=== PATIENT | female | born 1945 | race Caucasian/White ===

== ENCOUNTER → 2017-11-08 14:02 | Outpatient (CLI) | payer MEDICARE, OTHER, SELFPAY ==
[2017-11-08 16:45] LABS: Free T3 9.8 pg/mL (2.18-3.98); T4 Free Direct 3.07 ng/dL (0.76-1.46); Thyroid Stim Hormone (TSH) < 0.01 uIU/mL (0.358-3.74)
[2017-11-10 14:07] LABS: Thyroid Peroxidase AB 14 IU/mL (0-34)
[2017-11-10 14:28] LABS: Thyroglobulin Antibody < 1.0 IU/mL (0.0-0.9)
== END ==
PROVIDERS: Family Provider Nurse Practitioner Family; PCP Nurse Practitioner Family; Visit Provider Nurse Practitioner
DX: E05.90 Thyrotoxicosis, unspecified without thyrotoxic crisis or storm (principal)
CPT/HCPCS: 84439; 84443; 84481; 86376; 86800

== ENCOUNTER → 2018-02-01 14:49 | Outpatient (CLI) | payer MEDICARE, OTHER, SELFPAY ==
[2018-02-01 15:44] LABS: ALB/GLOB Ratio 0.9 RATIO (0.9-2.4); AST(SGOT) 30 U/L (15-37); Alanine Aminotransfer ALT/SGPT 29 U/L (13-56); Albumin, Serum 3.6 g/dL (3.2-5.0); Alkaline Phosphatase 246 U/L (45-117); Anion Gap 7 (5-15); BUN 22 mg/dL (7-18); BUN/Creat Ratio 30.8 RATIO (10-20); Chloride 104 mmol/L (98-107); Creatinine, Serum 0.71 mg/dL (0.55-1.02); EST Glomerular Filtration Rate 86 mL/min (>60); Est Glom Filt Rate - Afr Amer 104 mL/min (>60); Free T3 3.2 pg/mL (2.18-3.98); Globulin 4.1 g/dL (2.2-4.2); Glucose 95 mg/dL (74-106); Potassium 4.2 mmol/L (3.5-5.1); Protein, Total 7.7 g/dL (6.4-8.2); Sodium Level 141 mmol/L (136-145); T4 Free Direct 0.92 ng/dL (0.76-1.46); Thyroid Stim Hormone (TSH) < 0.01 uIU/mL (0.358-3.74)
== END ==
PROVIDERS: Family Provider Nurse Practitioner Family; PCP Nurse Practitioner Family; Visit Provider Nurse Practitioner
DX: E05.90 Thyrotoxicosis, unspecified without thyrotoxic crisis or storm (principal); I10 Essential (primary) hypertension; E78.5 Hyperlipidemia, unspecified; R63.4 Abnormal weight loss
CPT/HCPCS: 36415; 80053; 84439; 84443; 84481

== ENCOUNTER → 2018-03-30 16:32 | Outpatient (CLI) | payer MEDICARE, OTHER, SELFPAY ==
[2018-03-30 18:27] LABS: Thyroid Stim Hormone (TSH) 5.47 uIU/mL (0.358-3.74)
== END ==
PROVIDERS: Family Provider Nurse Practitioner Family; PCP Nurse Practitioner Family; Visit Provider Nurse Practitioner
DX: E05.90 Thyrotoxicosis, unspecified without thyrotoxic crisis or storm (principal)
CPT/HCPCS: 36415; 84439; 84443; 84481

== ENCOUNTER → 2018-04-29 08:30 | Outpatient (CLI) | payer MEDICARE, OTHER, SELFPAY ==
[2018-04-29 10:44] LABS: ALB/GLOB Ratio 0.9 RATIO (0.9-2.4); AST(SGOT) 26 U/L (15-37); Alanine Aminotransfer ALT/SGPT 27 U/L (13-56); Albumin, Serum 3.6 g/dL (3.2-5.0); Alkaline Phosphatase 175 U/L (45-117); Anion Gap 10 (5-15); BUN 16 mg/dL (7-18); BUN/Creat Ratio 17.4 RATIO (10-20); Calcium,Total 9.1 mg/dL (8.5-10.1); Chloride 104 mmol/L (98-107); Creatinine, Serum 0.92 mg/dL (0.55-1.02); EST Glomerular Filtration Rate 64 mL/min (>60); Est Glom Filt Rate - Afr Amer 78 mL/min (>60); Free T3 2.2 pg/mL (2.18-3.98); Globulin 4.1 g/dL (2.2-4.2); Glucose 114 mg/dL (74-106); Potassium 3.7 mmol/L (3.5-5.1); Protein, Total 7.7 g/dL (6.4-8.2); Sodium Level 142 mmol/L (136-145); T4 Free Direct 0.49 ng/dL (0.76-1.46)
== END ==
PROVIDERS: Family Provider Nurse Practitioner Family; PCP Nurse Practitioner Family; Visit Provider Nurse Practitioner
DX: E05.90 Thyrotoxicosis, unspecified without thyrotoxic crisis or storm (principal)
CPT/HCPCS: 36415; 80053; 84439; 84443; 84481

== ENCOUNTER → 2018-08-05 10:44 | Outpatient (CLI) | payer MEDICARE, OTHER, SELFPAY ==
[2018-08-05 11:58] LABS: Free T3 2.7 pg/mL (2.18-3.98); T4 Free Direct 0.81 ng/dL (0.76-1.46)
== END ==
PROVIDERS: Family Provider Nurse Practitioner Family; PCP Nurse Practitioner Family; Referring Provider Nurse Practitioner; Visit Provider Nurse Practitioner
DX: E05.90 Thyrotoxicosis, unspecified without thyrotoxic crisis or storm (principal)
CPT/HCPCS: 36415; 84439; 84443; 84481

== ENCOUNTER → 2018-08-22 12:21 | Outpatient (CLI) | payer MEDICARE, OTHER, SELFPAY ==
--- NOTE | 2018-08-22 12:22 | US_ITS ---
STUDY: THYROID ULTRASOUND REASON FOR EXAM: Female, 73 years old. Hyperthyroidism. TECHNIQUE: Ultrasound evaluation of the thyroid was performed with real-time and static fuentes-scale imaging. COMPARISON: None. FINDINGS: RIGHT LOBE: The right lobe of the thyroid gland measures 5.1 x 2.2 x 2.6 cm. There is a heterogeneous echotexture. In the lateral aspect of the mid thyroid there is a 0.5 x 0.5 x 0.6 cm simple cyst. Posteriorly there is a 0.8 x 0.5 x 0.6 cm complex nodule. There is also a 0.7 x 0.3 x 0.6 cm complex nodule in the more anterior mid thyroid. LEFT LOBE: The left lobe of the thyroid gland measures 4.6 x 2.1 x 2.5 cm. There is a heterogeneous echotexture. In the upper pole there is a 0.6 x 0.7 x 0.4 cm complex nodule. In the mid thyroid there is a 0.5 x 0.5 x 0.3 cm cyst. The lower pole there is a 1.9 x 1.3 x 1.1 cm solid hypoechoic nodule. ISTHMUS: The isthmus measures 0.4 cm. The regional lymph nodes are normal. US/Thyroid IMPRESSION: Findings consistent with multinodular goiter. Larger nodule in the left lower lobe most suspicious ranking acid TR 4, moderately suspicious, by ACR TI-RADS criteria. This nodule should be sampled with FNA. Electronically Signed: Jairon Mars DO at 16:01 EST Tel [phone], Service support ,
== END ==
PROVIDERS: Family Provider Nurse Practitioner Family; PCP Nurse Practitioner Family; Referring Provider Nurse Practitioner; Visit Provider Nurse Practitioner
DX: E05.90 Thyrotoxicosis, unspecified without thyrotoxic crisis or storm (principal)
CPT/HCPCS: 76536

== ENCOUNTER → 2018-09-22 10:20 | Outpatient (CLI) | payer MEDICARE, OTHER, SELFPAY ==
[2018-09-15 10:31] VITALS: BMI 35.2
--- NOTE | 2018-09-21 15:00 | ASPS_PTH ---
PATIENT: LISSET RIVERA LOC: [facility] U#:[id number] AGE/SX: 80/F ROOM: RE09/22/[address]: Dr. Lukasz Grace MD : [id number] BED: DIS: SPEC #: [id number] RECD: 09/22/18 10:11 STATUS: SARAH CALEB #: [id number] JOSE: 09/21/18 15:[address]: Lukasz Grace DEPT: CYTOLOGY RECD BY: London Ibarra ENTERED: 09/22/18 11:18 SP TYPE: ASPIRATION OTHR DR: Didier Dunn, [employer] Tissues: Thyroid gland, NOS Procedures: Pap Stain (control) Special Stain Group II Cytology Other HEADER OPERATION: Left thyroid FNA PRE-OP DIAGNOSIS: Left thyroid nodule TISSUE SUBMITTED: Left thyroid slides x6 DIAGNOSIS CYTOLOGY Fine needle aspiration, left thyroid nodule (smears): Adequate for evaluation. Negative, consistent with benign follicular nodule. AM:katya 09/23/18 CYTOLOGY STUDY Slides are reviewed. CYTOLOGY GROSS Received are six smears labeled with the patient's name and designated per the requisition as left thyroid. Submitted for staining. / 09/22/18 TC:5 CPT: 22920
--- OUTSIDE RECORDS SUMMARY | 2018-11-08 05:26 | XMS RPT_ITS ---
:1945 Author Organization OHIP Support Name Relationship Address Phone R Unavailable Unavailable Unavailable IGOR HERRERANETH Unavailable [address] + [place] [address] R Unavailable Unavailable Unavailable MIGUEL NATTY Unavailable [address] + [place] [address] R Unavailable Unavailable Unavailable IGOR HERRERANETH Unavailable [address] + [place] [address] NATTY HERRERA Unavailable Unavailable + NATTY HERRERA Unavailable Unavailable + R Unavailable Unavailable Unavailable IGOR HERRERANETH Unavailable [address] + [place] [address] PLEASE ASK Unavailable Unavailable Unavailable IGOR HERRERANETH Unavailable Unavailable + R Unavailable Unavailable Unavailable IGOR HERRERANETH Unavailable [address] + [place] [address] R Unavailable Unavailable Unavailable IGOR HERRERANETH Unavailable [address] + [place] [address] R Unavailable Unavailable Unavailable MIGUEL NATTY Unavailable [address] + [place] [address] R Unavailable Unavailable Unavailable IGOR HERRERANETH Unavailable [address] + [place] [address] R Unavailable Unavailable Unavailable MIGUEL NATTY Unavailable [address] + [place] [address] R Unavailable Unavailable Unavailable HERRERA, NATTY Unavailable [address] + [place] [address] R Unavailable Unavailable Unavailable HERRERA, NATTY Unavailable [address] + [place] [address] R Unavailable Unavailable Unavailable HERRERA, NATTY Unavailable [address] + [place] [address] Care Team Providers Name Role Phone DIDIER DUNN CNP Attending Unavailable DIDIER DUNN CNP Primary Care Unavailable LAURA HOLT, DR. LOONEY Attending Unavailable DIDIER DUNN CNP Primary Care Unavailable Lukasz Grace Attending Unavailable Didier Dunn AUTISM TEACHER-C Referring Unavailable Lukasz Grace Attending Unavailable Lukasz Grace Referring Unavailable Didier Dunn AUTISM TEACHER-C Primary Care Unavailable Tiffani Vaughan AUTISM TEACHER-C Attending Unavailable DIDIER DUNN Primary Care Unavailable Tiffani Vaughan AUTISM TEACHER-C Attending Unavailable Tiffani Vaughan AUTISM TEACHER-C Referring Unavailable DIDIER DUNN Primary Care Unavailable Tiffani Vaughan AUTISM TEACHER-C Attending Unavailable DIDIER DUNN Referring Unavailable Tiffani Vaughan AUTISM TEACHER-C Attending Unavailable Tiffani Vaughan AUTISM TEACHER-C Referring Unavailable Didier Dunn AUTISM TEACHER-C Primary Care Unavailable Tiffani Vaughan AUTISM TEACHER-C Attending Unavailable Tiffani Vaughan AUTISM TEACHER-C Referring Unavailable Didier Dunn AUTISM TEACHER-C Primary Care Unavailable Tiffani Vaughan AUTISM TEACHER-C Attending Unavailable Tiffani Vaughan AUTISM TEACHER-C Referring Unavailable Didier Dunn AUTISM TEACHER-C Primary Care Unavailable Tiffani Vaughan AUTISM TEACHER-C Attending Unavailable Tiffani Vaughan AUTISM TEACHER-C Referring Unavailable Didier Dunn AUTISM TEACHER-C Primary Care Unavailable Tiffani Vaughan AUTISM TEACHER-C Attending Unavailable Didier Dunn AUTISM TEACHER-C Referring Unavailable Tiffani Vaughan AUTISM TEACHER-C Attending Unavailable Tiffani Vaughan AUTISM TEACHER-C Referring Unavailable Didier Dunn AUTISM TEACHER-C Primary Care Unavailable Lukasz Grace Attending Unavailable Didier Dunn AUTISM TEACHER-C Referring Unavailable PROBLEMS PROBLEMS DATE TYPE CONDITION / CODE ATTENDING STATUS SOURCE 09/21/2018 Unknown 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, 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 / Hospital E04.2(ICD-10) Repository 03/30/2018 Unknown E05.90 - Tiffani Vaughan Active [place] Thyrotoxicosis, AUTISM TEACHER-C Community unspecified Hospital without thyrotoxic Repository crisis or storm / E05.90(ICD-10) PROCEDURES PROCEDURES No Procedure Records FoundRESULTS RESULTS AST(SGOT) Collected: 09/28/2018 Status: F Source: [place] 1:28 PM [facility] TYPE CODE TESTS RESULT OUT OF RANGE REFERENCE UNITS LAB L501.4100 15-37 U/L Normal AST 27 Performed By: #### L501.4100, L501.4405, L501.19161, L501.9520, L506.0400 #### [facility] [address] [place], [place], [id number] ALANINE AMINOTRANSFERAS Collected: 09/28/2018 Status: F Source: [place] (SGPT) 1:28 PM [facility] [place] TYPE CODE TESTS RESULT OUT OF RANGE REFERENCE UNITS LAB L501.4405 13-56 U/L Normal ALT 28 Performed By: #### L501.4100, L501.4405, L501.96304, L501.9520, L506.0400 #### [facility] [address] [place], [place], [id number] FREE T3 Collected: 09/28/2018 Status: F Source: [place] 1:28 PM [facility] TYPE CODE TESTS RESULT OUT OF RANGE REFERENCE UNITS LAB L501.34758 2.18-3.98 pg/mL Normal FREE T3 3.0 Performed By: #### L501.4100, L501.4405, L501.01201, L501.9520, L506.0400 #### [facility] [address] [place], [address] THYROID STIM HORMONE Collected: 09/28/2018 Status: F Source: [place] (TSH) 1:28 PM [facility] TYPE CODE TESTS RESULT OUT OF RANGE REFERENCE UNITS LAB L501.9520 0.358-3.74 uIU/mL Normal TSH 1.13 Performed By: #### L501.4100, L501.4405, L501.49396, L501.9520, L506.0400 #### [facility] [address] [place], [address] T4 FREE DIRECT Collected: 09/28/2018 Status: F Source: [place] 1:28 PM [facility] [place] TYPE CODE TESTS RESULT OUT OF RANGE REFERENCE UNITS LAB L506.0400 0.76-1.46 ng/dL Normal T4 FREE 1.07 DIRECT Performed By: #### L501.4100, L501.4405, L501.27203, L501.9520, L506.0400 #### [facility] [address] [place], [address] SURGERY VISIT REPORT Observed: 09/21/2018 Status: F Source: [place] 3:22 PM [facility] [address] [place] [address] OFFICE VISIT Date of Service: 09/21/18 MR#: [id number] Acct: [id number] Name: LISSET HERRERA Krishan Rep #: [id number] : 1945 Provider: Lukasz Grace MD Age/Sex: 73/F Location: [facility] Status: Signed Intake Intake Visit Reasons: left thyroid FNA Pet Crematory Worker Required: No Is patient in pain?: No Allergies No Known Allergies Allergy (Unverified 09/21/18 14:49) Medications atorvastatin 40 mg tablet 40 mg PO QDAY 10/18/17 [History Confirmed 09/21/18] hydrochlorothiazide 12.5 mg tablet 12.5 mg PO QDAY 10/18/17 [History Confirmed 09/21/18] metformin ER 500 mg tablet,extended release 24 hr 500 mg PO QDAY 10/18/17 [History Confirmed 09/21/18] multivitamin tablet 1 tab PO QDAY 10/18/17 [History Confirmed 09/21/18] pantoprazole 40 mg tablet,delayed release 40 mg PO QDAY 10/18/17 [History Confirmed 09/21/18] sertraline 100 mg tablet 100 mg PO QDAY 10/18/17 [History Confirmed 09/21/18] calcium carbonate 600 mg calcium (1,500 mg) tablet 600 mg PO QDAY tab 10/19/17 [History Confirmed 09/21/18] carboxymethylcellulose sodium 0.25 % eye drops in a dropperette 1 drp OPHTHALMIC BID ea 03/30/18 [History Confirmed 09/21/18] fluorometholone 0.1 % eye drops,suspension 1 drp OPHTHALMIC Q12H ml 03/30/18 [History Confirmed 09/21/18] vit C 250 mg-E 200 unit-zinc 40 mg-copper 1 rd-ubktho-lktivg capsule 1 tab PO BID 08/17/18 [History Confirmed 09/21/18] methimazole 10 mg tablet 10 mg PO QDAY #30 tab 09/06/18 [Rx Confirmed 09/21/18] PFSH Medical History Multiple thyroid nodules (Acute) HTN (hypertension) (Chronic) COPD (chronic obstructive pulmonary disease) (Acute) Diabetes type 2, controlled (Acute) Depression (Acute) Hyperlipidemia (Acute) GERD (gastroesophageal reflux disease) (Acute) Hyperthyroidism (Acute) Surgical History H/O bilateral hip replacements (Acute) removal of spurs (Acute) H/O tubal ligation (Acute) Family History Mother Osteoporosis Myocardial infarction Osteoarthritis Sister Osteoporosis Diabetes Osteoarthritis Colon cancer Brother Leukemia Aunt Breast cancer Social History Smoking Status: Former smoker second hand exposure: No alcohol intake: never substance use type: does not use caffeine: Yes (rarely) frequency: does not exercise seatbelt use: always HPI HPI HPI: LISSET HERRERA, is a 73 F who presents to the office today for left thyroid fine-needle aspiration Office Procedures Fine Needle Aspiration Provider Documentation Details: Ultrasound-guided final aspiration vague left lower pole thyroid nodule Time out and informed consent was obtained. 73-year-old female is taken to procedure room placed on the table. The neck was prepped with Betadine. Ultrasound was performed. There was supposed to be a 19 mm nodule in the lower pole of the left gland. The left gland my eyes was relatively heterogenous. Cleanly identify a distinct lower pole nodule was very challenging. Under ultrasound guidance 1% lidocaine mixed 50-50 with 0.5% Marcaine was used as local anesthetic. A total of 1 cc was used. A 25-gauge needle was advanced into the lower pole of the left lobe. A rapid imww-ytm-vacnh motion was performed. Specimen was obtained and smeared out on slides. The slides were treated immediately with fixative. 3 separate passes were performed. She tolerated the procedure well. She was given activity and wound care instructions. Lukasz Grace M.D., F.A.C.S. Alert Pilar Alert Billing: Yes FNA [id number] Thyroid Assessment AND Plan Problems 1. Multiple thyroid nodules E04.2 Plan Clinical findings and ultrasound findings are now more consistent with a benign finding. The patient will be notified of cytology results as they become available. During the imaging was challenging today. If the cytology is benign then I will recommend follow-up thyroid ultrasound at 6 months. cc:Silvestre Dunn CNP and LIZETTE Raymundo M.D., F.A.C.S. Orders Orders: Coding Level of Care Code Attention Pilar Diagnoses Multiple thyroid nodules E04.2 Additional Codes FNA - Fine Needle Aspiration: 43967 Thyroid (67896) 09/21/18 1522 <Electronically signed by Lukasz Grace MD> Date Lukasz Grace MD Cosigner Signature: Date (if applicable) CC: Tiffani Vaughan AUTISM TEACHER; ROBINAC Didier Dunn ASPIRATION (SLIDES Observed: 09/21/2018 Status: F Source: [place] ONLY) 3:00 PM [facility] Patient: LISSET HERRERA : 1945 (73/F) Acct Num: [id number] Phys: Lesly LOPEZ,Lukasz Unit Num: [id number] Loc: [facility] Specimen: [id number] Received: 09/22/18 - 1011 Spec Type: ASPIRATION TISSUES 1 TISSUES: Thyroid gland, NOS CYTOLOGY GROSS Received are six smears labeled with the patient's name and designated per the requisition as left thyroid. Submitted for staining. / 09/22/18 TC:5 CPT: 45139 CYTOLOGY STUDY Slides are reviewed. DIAGNOSIS CYTOLOGY Fine needle aspiration, left thyroid nodule (smears): Adequate for evaluation. Negative, consistent with benign follicular nodule. AM:katya 09/23/18 HEADER OPERATION: Left thyroid FNA PRE-OP DIAGNOSIS: Left thyroid nodule TISSUE SUBMITTED: Left thyroid slides x6 Signed Win Abel, DO 09/23/18 <signature on file> Performed By: #### PASPS #### [facility] [address] [place] [address]. [place], [address] FINAL SURGICAL Observed: 09/19/2018 Status: F Source: [facility] PATHOLOGY REPORT 10:17 AM [facility] REPOSITORY . Pathology Reports Accession: Collected Date/Time: Received Date/Time: Pathologist: [id number] 09/19/2018 10:17 EST 09/20/2018 09:53 MD DIDIER ROSARIO Final Surgical Pathology Report DIAGNOSIS: A) SIGMOID COLON, BIOPSY: TUBULAR ADENOMA. B) CECUM, BIOPSY: TUBULAR ADENOMA. C) TRANSVERSE COLON, BIOPSY: TUBULAR ADENOMA. COMMENT: [facility] Aliya # [id number] CLINICAL INFORMATION: Procedure: COLONOSCOPY WITH HOT SNARE AND BIOPSY POLYPECTOMIES Preoperative diagnosis: HISTORY OF POLYPS Postoperative diagnosis: SAME SPECIMEN: A POLYP, COLORECT- SIGMOID POLYP B POLYP, COLORECT- CECAL POLYP C POLYP, COLORECT- TRANSVERSE COLON POLYP GROSS DESCRIPTION: A. Received in formalin labeled sigmoid polyp are 2 martines glistening soft tissues averaging 0.5 cm. TS -1 B. Received in formalin labeled cecal polyp are 2 martines-brown listening soft tissues averaging 0.4 cm. TS -1 C. Received in formalin labeled transverse colon polyps are multiple martines glistening soft tissues ranging from 0.3-0.4 cm. TS -1 Dictated by Ibeth [facility] MICROSCOPIC DESCRIPTION: A,B&C) Slides reviewed. Electronically Signed by Pathology Report verified by [facility] Electronically signed by DIDIER ESTRADA MD Sign out Date: 09/21/2018 08:58 Performing Lab: [facility], [address] [place] [address] Performed By: #### SPFR #### [place] [address] SURGERY VISIT REPORT Observed: 09/15/2018 Status: F Source: [place] 10:[address] [facility] [address] [place] [address] OFFICE VISIT Date of Service: 09/15/18 MR#: [id number] Acct: [id number] Name: LISSET HERRERA Rep #: [id number] : 1945 Provider: Lukasz Grace MD Age/Sex: 73/F Location: [facility] Status: Signed Intake Vital Signs09/15/18 Height 5 ft 1.5 in 09/15/18 Weight: 185 lb 09/15/18 Body Mass Index (BMI) 34.4 Intake Visit Reasons: Thyroid Consult [facility] 08/22 Allergies No Known Allergies Allergy (Unverified 09/15/18 10:04) Medications atorvastatin 40 mg tablet 40 mg PO QDAY 10/18/17 [History Confirmed 09/15/18] hydrochlorothiazide 12.5 mg tablet 12.5 mg PO QDAY 10/18/17 [History Confirmed 09/15/18] metformin ER 500 mg tablet,extended release 24 hr 500 mg PO QDAY 10/18/17 [History Confirmed 09/15/18] multivitamin tablet 1 tab PO QDAY 10/18/17 [History Confirmed 09/15/18] pantoprazole 40 mg tablet,delayed release 40 mg PO QDAY 10/18/17 [History Confirmed 09/15/18] sertraline 100 mg tablet 100 mg PO QDAY 10/18/17 [History Confirmed 09/15/18] calcium carbonate 600 mg calcium (1,500 mg) tablet 600 mg PO QDAY tab 10/19/17 [History Confirmed 09/15/18] carboxymethylcellulose sodium 0.25 % eye drops in a dropperette 1 drp OPHTHALMIC BID ea 03/30/18 [History Confirmed 09/15/18] fluorometholone 0.1 % eye drops,suspension 1 drp OPHTHALMIC Q12H ml 03/30/18 [History Confirmed 09/15/18] vit C 250 mg-E 200 unit-zinc 40 mg-copper 1 cr-jbrdtz-iwqcec capsule 1 tab PO BID 08/17/18 [History Confirmed 09/15/18] methimazole 10 mg tablet 10 mg PO QDAY #30 tab 09/06/18 [Rx Confirmed 09/15/18] PFSH Medical History Multiple thyroid nodules (Acute) HTN (hypertension) (Chronic) COPD (chronic obstructive pulmonary disease) (Acute) Diabetes type 2, controlled (Acute) Depression (Acute) Hyperlipidemia (Acute) GERD (gastroesophageal reflux disease) (Acute) Hyperthyroidism (Acute) Surgical History H/O bilateral hip replacements (Acute) removal of spurs (Acute) H/O tubal ligation (Acute) Family History Mother Osteoporosis Myocardial infarction Osteoarthritis Sister Osteoporosis Diabetes Osteoarthritis Colon cancer Brother Leukemia Aunt Breast cancer Social History Smoking Status: Former smoker second hand exposure: No alcohol intake: never substance use type: does not use caffeine: Yes (rarely) frequency: does not exercise seatbelt use: always HPI HPI HPI: LISSET HERRERA, is a 73 F who presents to the office today for surgical consultation regarding multinodular thyroid. The patient is referred by IDANIA vaughan CNP and a written compromise surgical consult recommendations will be returned to her.. 73-year-old female. Her primary care provider is Silvestre Dunn CNP. Patient presented to him with she claims a 40-50 pound weight loss. Thyroid disorder was identified. On August 05, 2018 Free T3 was 2.7 with a TSH of 12.9 and a T4 direct of 0.81. Recent laboratory of August 18, 2018 shows a hemoglobin A1c of 5.6 with a white blood cell count of 7.4 and a hemoglobin of 14.1 and hematocrit 43.2 and a platelet count 272,000. BUN is 14 and creatinine 0.8. Liver function tests were normal. At the [facility] on August 22, 2018 thyroid ultrasound was obtained. The right lobe measures 5.1 cm. There is a 6 mm cyst and a 8 mm complex nodule and a 7 mm complex nodule. On the left the gland measures 4.6 cm and there is a 7 mm nodule and a 5 mm nodule in the lower pole a solid 19 mm nodule. The patient has no specific focal anterior neck symptoms. She has a strong family history of multinodular goiter and hypothyroidism and multiple sisters requiring medication. She has not had any head neck radiation treatment. She states that since having been placed on methimazole she has regained all 40-50 pounds of weight loss ROS General General: Yes weight change and fatigue; no appetite, colon cancer, breast cancer or weakness HEENT HEENT: No difficulty swallowing, eye injury, eye surgery, swollen glands or hoarseness Endo Endocrine: Yes thyroid disease and diabetes mellitus; no thyroid cancer, Hair loss, heat intolerance or cold intolerance Skin Skin: No rash or changing moles Musc Musculoskeletal: Yes arthritis; no back problems, rheumatoid arthritis, gout or joint pain Cardio Cardiovascular: No pacemaker, heart disease, atrial fibrillation, high blood pressure, heart attack, heart stent, palpitations, shortness of breat with exertion, chest pain or murmur Psych Psychiatric: Yes depression; no anxiety or hearing voices Resp Respiratory: Yes shortness of breath, Yes cough, No sleep apnea, No COPD, No asthma, No emphysema, No wheezing Gastro Gastrointestinal: Yes acid reflux, No abdominal pain, No nausea or vomiting, No diarrhea, No constipation, No blood in stool, No hemorrhoids, No ulcers, No gallbladder problem, No black,tarry stools Osbaldo Hematologic: No blood thinners, No blood disorders, No bleeding, No anemia, No blood clots Neuro Neurologic: No weakness Exam Const General: cooperative, comfortable, no acute distress Nutritional Appearance: obese Neck Thyroid: thyroid normal Carotids: normal carotid upstroke, no bruits Other: Chvostek negative Cardio Heart Sounds: no murmurs Assessment AND Plan Problems 1. Multiple thyroid nodules E04.2 Plan I have reviewed the patient's imaging. I believe that she probably has condition similar to sisters and family members consistent with multinodular goiter. I have offered her a ultrasound-guided final aspiration particularly of the dominant nodule lower pole left thyroid. She has had an opportunity to ask and have questions answered. At that same setting I will take a brief inspection of the right thyroid as well. I described the technique, benefits, risks, alternatives. She has had an opportunity to ask and have questions answered. She is not on any anticoagulants. We will schedule and expedite her care. I very much appreciate the kind opportunity of assisting with her surgical care CC: IDANIA vaughan CNP and LIZETTE Horta M.D., F.A.C.S. Coding Level of Care Code Exp prob focused,strt fwd Diagnoses Multiple thyroid nodules E04.2 09/15/18 1031 <Electronically signed by Lukasz Grace MD> Date Lukasz Grace MD Cosigner Signature: Date (if applicable) CC: Tiffani Vaughan AUTISM TEACHER; AUTISM TEACHER-C Didier Dunn MA MAMMOGRAM SCREENING Observed: 08/31/2018 Status: F Source: [facility] BILATERAL W/PETE 11:00 AM FOUNDATION REPOSITORY ORIGINAL FROM: [place] [address] PROCEDURE FOR: LISSET HERRERA [address] [place] [id number] Home: PID#: [id number] Exam#: [id number] : 1945 Age: 73 TO: DIDIER DUNN APRN [place] [address] #[id number] BILATERAL DIGITAL SCREENING MAMMOGRAM 3D/2D WITH CAD WITH MEDIOLATERAL OBLIQUE CRANIOCAUDAL: 08/31/2018 Comparison is made to exams dated: 07/05/2017 mammogram and 07/02/2015 mammogram - [facility]. There are scattered fibroglandular elements in both breasts. Current study was also evaluated with a Computer Aided Detection (CAD) system. No significant masses, calcifications, or other findings are seen in either breast. There has been no significant interval change. IMPRESSION: NEGATIVE There is no mammographic evidence of malignancy. A 1 year screening mammogram is recommended.(09/01/2019) MALLY VALLE MD ab/penrad:08/31/2018 16:15:20 Sports Book Board Attendant(s): ALEC ABEBE RT(R), [facility] letter sent: Normal BI-RADS 1&2 Mammogram BI-RADS: 1 Negative THYROID Observed: 08/22/2018 Status: F Source: [place] 12:22 PM [facility] Imaging Services [address] [place], [place] [address] [address] Thyroid MR#: [id number] Acct: [id number] Name: LISSET HERRERA Rep #: [id number] : 1945 F 73 From: Jairon Mars DO PCP: MARK Orellana Status: REG CLI Study: Thyroid Date of Exam: 08/22/18 Exam# [id number] Ordering Dr: Tiffani Vaughan STUDY: THYROID ULTRASOUND REASON FOR EXAM: Female, 73 years old. Hyperthyroidism. TECHNIQUE: Ultrasound evaluation of the thyroid was performed with real-time and static fuentes-scale imaging. COMPARISON: None. FINDINGS: RIGHT LOBE: The right lobe of the thyroid gland measures 5.1 x 2.2 x 2.6 cm. There is a heterogeneous echotexture. In the lateral aspect of the mid thyroid there is a 0.5 x 0.5 x 0.6 cm simple cyst. Posteriorly there is a 0.8 x 0.5 x 0.6 cm complex nodule. There is also a 0.7 x 0.3 x 0.6 cm complex nodule in the more anterior mid thyroid. LEFT LOBE: The left lobe of the thyroid gland measures 4.6 x 2.1 x 2.5 cm. There is a heterogeneous echotexture. In the upper pole there is a 0.6 x 0.7 x 0.4 cm complex nodule. In the mid thyroid there is a 0.5 x 0.5 x 0.3 cm cyst. The lower pole there is a 1.9 x 1.3 x 1.1 cm solid hypoechoic nodule. ISTHMUS: The isthmus measures 0.4 cm. The regional lymph nodes are normal. US/Thyroid IMPRESSION: Findings consistent with multinodular goiter. Larger nodule in the left lower lobe most suspicious ranking acid TR 4, moderately suspicious, by ACR TI-RADS criteria. This nodule should be sampled with FNA. Electronically Signed: Jairon Mars DO at 16:01 EST Tel [phone], Service support , CC: Tiffani Vaughan NP; MARK Dunn Voltage Regulator Assembler: Signed OFFICE VISIT REPORT Observed: 08/17/2018 Status: F Source: [place] 7:[address] [place] [address] OFFICE VISIT Date of Service: 08/17/18 MR#: [id number] Acct: [id number] Patient: LISSET HERRERA Rep #: [id number] : 1945 Provider: Tiffani Vaughan NP Age/Sex: 73/F [place] [facility] [place]: Signed Intake Vital Signs08/17/18 Height 5 ft 1 in 08/17/18 Weight: 186 lb 2 oz 08/17/18 Body Mass Index (BMI) 35.2 08/17/18 Blood Pressure 116/74 08/17/18 Blood Pressure Location Lt popliteal 08/17/18 Blood Pressure Position Sitting Intake Visit Reasons: Thyroid dysfunction Pet Crematory Worker Required: No Accompanied by: Self Allergies No Known Allergies Allergy (Unverified 08/17/18 08:39) Medications atorvastatin 40 mg tablet 40 mg PO QDAY 10/18/17 [History Confirmed 08/17/18] hydrochlorothiazide 12.5 mg tablet 12.5 mg PO QDAY 10/18/17 [History Confirmed 08/17/18] metformin ER 500 mg tablet,extended release 24 hr 500 mg PO QDAY 10/18/17 [History Confirmed 08/17/18] multivitamin tablet 1 tab PO QDAY 10/18/17 [History Confirmed 08/17/18] pantoprazole 40 mg tablet,delayed release 40 mg PO QDAY 10/18/17 [History Confirmed 08/17/18] sertraline 100 mg tablet 100 mg PO QDAY 10/18/17 [History Confirmed 08/17/18] calcium carbonate 600 mg calcium (1,500 mg) tablet 600 mg PO QDAY tab 10/19/17 [History Confirmed 08/17/18] carboxymethylcellulose sodium 0.25 % eye drops in a dropperette 1 drp OPHTHALMIC BID ea 03/30/18 [History Confirmed 08/17/18] fluorometholone 0.1 % eye drops,suspension 1 drp OPHTHALMIC Q12H ml 03/30/18 [History Confirmed 08/17/18] methimazole 10 mg tablet 10 mg PO QDAY #30 tab 08/10/18 [Rx Confirmed 08/17/18] vit C 250 mg-E 200 unit-zinc 40 mg-copper 1 fz-jhheuq-oqmkam capsule 1 tab PO BID 08/17/18 [History Confirmed 08/17/18] PFSH Medical History COPD (chronic obstructive pulmonary disease) (Acute) Depression (Acute) Diabetes type 2, controlled (Acute) GERD (gastroesophageal reflux disease) (Acute) Hyperlipidemia (Acute) Hyperthyroidism (Acute) removal of spurs (Acute) HTN (hypertension) (Chronic) Surgical History H/O bilateral hip replacements (Acute) H/O tubal ligation (Acute) Family History Mother Osteoporosis Myocardial infarction Osteoarthritis Sister Osteoporosis Diabetes Osteoarthritis Colon cancer Brother Leukemia Aunt Breast cancer Social History Smoking Status: Former smoker second hand exposure: No alcohol intake: never substance use type: does not use HPI HPI Details: Details: History of present illness Lisset Herrera is a 72 year old female, pt of Didier Dunn, who presents for follow up of hyperthyroidism. Today she reports overall she feels good with some issues of constipation weight gain She specifically denies palpitations, rapid heart rate, anxiety, nervousness, fatigue, weakness, exopthalmos, sleep issues, change in appetite. Currently on tapazole 10mg daily. She has not kept appointments as directed. . She has been managed by labs and telephone. Today she mentions she has had some difficulty swallowing and this is new for her. Exam Const General: comfortable, no acute distress, not diaphoretic, not anxious Nutritional Appearance: average body habitus Orientation: oriented x3 HENMT Head: normal to inspection, atraumatic Ears: hearing grossly normal bilaterally Nose: no nasal discharge Mouth: oral mucosae normal, moist mucous membranes Throat: other Other: Thyroid ultrasound notes normal size thyroid with subcentimeter nodules bilateral. Eyes General: appearance normal, both eyes and all related structures Eyelids: eyelids normal Conjunctivae: conjunctivae normal Pupils: other (No exophthalmos) Neck Neck: normal visual inspection Neck mass: No Thyroid: multiple nodules Chest Chest palpation AND inspection: deferred Resp Effort AND Inspection: able to speak in complete sentences, normal respiratory effort, symmetric chest movement Auscultation: Bilateral: Clear to Auscultation Cardio Rate: regular rate Rhythm: regular rhythm Heart Sounds: S1 normal, S2 normal GI Inspection: normal to inspection Auscultation: normal bowel sounds Palpation: soft, no guarding General: deferred Skin General: no rashes or lesions noted, turgor normal Wounds: no wounds Neuro General: gait normal, moves all extremities Cognition: normal cognition Speech: speech normal Extrem General: no edema, normal to inspection, full ROM Psych Appearance: well kempt Mood: congruent mood Affect: normal affect Speech and Movement: speech and movement normal Attitude: cooperative Thought Process: normal Thought Content: normal Judgment: judgment good ROS Const Constitutional: Positive for night sweats and change in appetite; no anorexia, body ache, chills, fatigue, fever(s), frequent falls, decreased energy, malaise, weakness, weight change, sleep problems, abnormal sleep pattern, other, headache(s), snoring or excessive sweating Eyes Eyes: No blurry vision, change in vision, double vision, discharge, dry eyes, bulging eyes, floaters, visual disturbances, eye pain, light sensitivity, spots in vision, tunnel vision or other ENT ENT: No abnormal hearing, ear pain, ear discharge, ear pressure, hearing loss, tinnitus, dizziness/vertigo, balance problems, nosebleed/epistaxis, nasal congestion, nasal obstruction, nose pain, sinus pressure, sinus pain, nasal discharge, post nasal drip, headache(s), facial pain, dental pain, dry mouth, bad breath, hoarseness, lip swelling, mouth lesions, mouth pain, sore throat, tongue swelling, throat swelling, other, difficulty swallowing or neck pain Resp Respiratory: No cough, change in phlegm color, chest congestion, excessive phlegm production, hemoptysis, pain on inspiration, shortness of breath, pain with cough, snoring, stridor, wheezing or other Cardio Cardiology: No chest pain at rest, chest pain with exertion, leg pain with exertion, excessive sweating, shortness of breath, dyspnea on exertion, generalized swelling, irregular heart rhythm, lightheadedness, orthopnea, radiating jaw, neck or arm pain, fast heart rate, slow heart rate, palpitations or other Gastro GI: No abdominal pain, belching, bloating, change in bowel habits, change in stool character, coffee ground emesis, constipation, cramping, diarrhea, heartburn, difficulty swallowing, feeling full early, excessive flatus, incontinent of stools, Vomiting blood/hematemesis, blood in stool, loose stools, Black,tarry stools, nausea/dyspepsia, pain with swallowing, vomiting or other Genitourinary-Female: No difficulty urinating, burning urination, painful urination, urinary incontinence, urinary frequency, urinary urgency, urinary hesitancy, urinary retention, blood in urine, Frequent nighttime urination/ nocturia, post void dribbling, suprapubic fullness, side pain, sexual problems, genital lesions, genital itching, hot flashes, abnormal periods, abnormal vaginal bleeding, absent period, painful periods, light periods, heavy periods, difficulty getting , painful intercourse, pelvic pain, vaginal dryness, vaginal odor, Vaginal Itching or other Musc Musculoskeletal: No abnormal walking, joint pain, back pain, deformity, joint swelling, limited range of motion, loss of height, muscle cramps, muscle weakness, decreased muscle mass, body aches, neck pain, numbness, radiating pain into limb, stiffness, tingling or other Skin Skin: No acne, hair loss, change in hair, nail changes, boil, change in skin color, dry skin, redness, excessive hair growth, yellowing of the skin, lesions, itching, rash, skin pain, skin ulcer, sores, skin swelling, wounds or other Breast Breast: No other Neuro Neurology: No frequent falls, weakness, visual disturbances, abnormal hearing, headache(s), abnormal walking, numbness or tingling Psych Psychiatric: No abnormal sleep pattern, Positive for change in appetite Endo Endocrine: No fatigue, other or excessive sweating Aller/Imm Allergy/Immunologic: No lip swelling, tongue swelling, throat swelling, wheezing or itchy eyes Exam Musc Musculoskeletal: No muscle weakness Assessment AND Plan 1. Hyperthyroidism E05.90 Plan Patient did not reduce her tapazole to 10mg as directed . Was noted when pharmacist called for refill. TSH last noted 12.90 and she has since been instructed reduce tapazole to 10mg. She is complaining of difficulty swallowing as a new symptom so US thyroid to be done. Instructed again today labs must be completed every 6 weeks and visits must be completed every 3 months. This has been an issue. Patient Instructions Tapazole 10mg daily Lab 6 weeks RTC 12 weeks ER if severe sore throat or fever. Orders Orders: Plan Detail Other Orders Orders: Other Medications New: vit C,K-Rh-ozqlk-lutein-zeaxan [id number] xf-apmf-ze-mg (PreserVision ARED1 tab PO BID S-2) Additional Comments Spent approximately 30 minutes with patient with over 50% of time spent in discussion and counseling regarding medication adjustment, symptoms and treatment of hyperthyroidism. Coding Level of Care Code Off vis,est,level 4 Diagnoses Hyperthyroidism E05.90 08/17/181931 <Electronically signed by Tiffani FLORES> Date Tiffani FLORES Cosigner Signature: Date (if applicable) CC: FREE T3 Collected: 08/05/2018 Status: F Source: [place] 10:48 AM [facility] [place] TYPE CODE TESTS RESULT OUT OF RANGE REFERENCE UNITS LAB L501.95452 2.18-3.98 pg/mL Normal FREE T3 2.7 Performed By: #### L501.19729, L501.9520, L506.0400 #### [facility] [address] [place], [address] THYROID STIM HORMONE Collected: 08/05/2018 Status: F Source: [place] (TSH) 10:48 AM [facility] [place] TYPE CODE TESTS RESULT OUT OF RANGE REFERENCE UNITS LAB L501.9520 0.358-3.74 uIU/mL High TSH 12.90 Performed By: #### L501.19900, L501.9520, L506.0400 #### [facility] [address] [place], [address] T4 FREE DIRECT Collected: 08/05/2018 Status: F Source: [place] 10:48 AM [facility] [place] [place] TYPE CODE TESTS RESULT OUT OF RANGE REFERENCE UNITS LAB L506.0400 0.76-1.46 ng/dL Normal T4 FREE 0.81 DIRECT Performed By: #### L501.37761, L501.9520, L506.0400 #### [facility] [address], [address] COMPREHENSIVE METABOLIC Collected: 04/29/2018 Status: F Source: [place] PROFIL 8:35 AM [facility] [place] TYPE CODE TESTS RESULT OUT OF RANGE REFERENCE UNITS LAB L501.0100 74-106 mg/dL High GLU 114 Result Comment: Fasting Glucose result from 100 to 125 mg/dL suggests IMPAIRED HOMEOSTASIS per A.D.A. criteria. Please note revised GLUCOSE reference range effective 2017. LAB L501.1000 7-18 mg/dL Normal BUN 16 LAB L501.1100 0.55-1.02 mg/dL Normal CREAT,SERUM 0.92 Result Comment: The validity of the calculated GFR AND GFRAA in patients over 70 years has not been determined. Clinical correlation is essential. LAB L501.1110 >60 mL/min Normal EST GFR 64 Result Comment: Non- GFR Calc LAB L501.1115 >60 mL/min Normal EST GFR - AA 78 Result Comment: GFR Calc LAB L501.1300 10-20 RATIO Normal BUN/CRE 17.4 LAB L501.1500 6.4-8.2 g/dL T Normal PROT 7.7 LAB L501.1800 3.2-5.0 g/dL Normal ALB 3.6 LAB L501.1950 2.2-4.2 g/dL Normal GLOB 4.1 LAB L501.2000 0.9-2.4 RATIO Normal A/G 0.9 LAB L501.2200 8.5-10.1 mg/dL CA Normal 9.1 LAB L501.4100 15-37 U/L Normal AST 26 LAB L501.4305 45-117 U/L High ALK P 175 LAB L501.4405 13-56 U/L Normal ALT 27 LAB L501.4600 0.20-1.00 mg/dL T Normal BILI 0.20 LAB L501.5300 136-145 mmol/L NA Normal 142 LAB L501.5600 3.5-5.1 mmol/L K Normal 3.7 LAB L501.5900 98-107 mmol/L CL Normal 104 LAB L501.6100 21.0-32.0 mmol/L Normal CO2 28.0 LAB L501.6200 5-15 Normal GAP 10 Performed By: #### L500.4050, L501.57103, L501.9520, L506.0400 #### [facility] [address] [place], [place], [id number] FREE T3 Collected: 04/29/2018 Status: F Source: [place] 8:35 AM [facility] [place] TYPE CODE TESTS RESULT OUT OF RANGE REFERENCE UNITS LAB L501.34341 2.18-3.98 pg/mL Normal FREE T3 2.2 Performed By: #### L500.4050, L501.69308, L501.9520, L506.0400 #### [facility] [address] [place], [place], [address] THYROID STIM HORMONE Collected: 04/29/2018 Status: F Source: [place] (TSH) [facility] TYPE CODE TESTS RESULT OUT OF RANGE REFERENCE UNITS LAB L501.9520 0.358-3.74 uIU/mL High TSH 20.50 Performed By: #### L500.4050, L501.83315, L501.9520, L506.0400 #### [facility] [address] [place], [address] T4 FREE DIRECT Collected: 04/29/2018 Status: F Source: [place] 8:35 AM [facility] [place] TYPE CODE TESTS RESULT OUT OF REFERENCE UNITS RANGE LAB L506.0400 0.76-1.46 ng/dL Low T4 FREE 0.49 DIRECT Performed By: #### L500.4050, L501.26491, L501.9520, L506.0400 #### [facility] [address] [place], [address] OFFICE VISIT REPORT Observed: 04/02/2018 Status: F Source: [place] 6:10 PM [facility] 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 Accompanied by: Self Is patient in pain?: No Allergies No Known Allergies Allergy (Unverified 03/30/18 15:10) Medications atorvastatin 40 mg tablet 40 mg PO QDAY 10/18/17 [History Confirmed 03/30/18] hydrochlorothiazide 12.5 mg tablet 12.5 mg PO QDAY 10/18/17 [History Confirmed 03/30/18] metformin ER 500 mg tablet,extended release 24 hr 500 mg PO QDAY 10/18/17 [History Confirmed 03/30/18] multivitamin tablet 1 tab PO QDAY 10/18/17 [History Confirmed 03/30/18] pantoprazole 40 mg tablet,delayed release 40 mg PO QDAY 10/18/17 [History Confirmed 03/30/18] sertraline 100 mg tablet 100 mg PO QDAY 10/18/17 [History Confirmed 03/30/18] calcium carbonate 600 mg calcium (1,500 mg) tablet 600 mg PO QDAY tab 10/19/17 [History Confirmed 03/30/18] methimazole 10 mg tablet 30 mg PO QDAY #90 tab MDD 3 pills daily 02/14/18 [Rx Confirmed 03/30/18] carboxymethylcellulose sodium 0.25 % eye drops in a dropperette 1 drp OPHTHALMIC BID ea 03/30/18 [History Confirmed 03/30/18] cholecalciferol (vitamin D3) 50,000 unit capsule 50,000 unit PO QWEEK 03/30/18 [History Confirmed 03/30/18] fluorometholone 0.1 % eye drops,suspension 1 drp OPHTHALMIC Q12H ml 03/30/18 [History Confirmed 03/30/18] Is last menstrual period known: No Post menopausal: Yes Patient : No PFSH Medical History COPD (chronic obstructive pulmonary disease) (Acute) Depression (Acute) Diabetes type 2, controlled (Acute) GERD (gastroesophageal reflux disease) (Acute) Hyperlipidemia (Acute) Hyperthyroidism (Acute) removal of spurs (Acute) HTN (hypertension) (Chronic) Surgical History H/O bilateral hip replacements (Acute) H/O tubal ligation (Acute) Family History Mother Osteoporosis Myocardial infarction Osteoarthritis Sister Osteoporosis Diabetes Osteoarthritis Colon cancer Brother Leukemia Aunt Breast cancer Social History Smoking Status: Former smoker second hand exposure: No alcohol intake: never substance use type: does not use HPI HPI Details: History of present illness Lisset Herrera is a 72 year old female, pt of Didier Dunn, who presents forfollow up of hyperthyroidism. Today she reports overall she feels good with some issues of constipation weight gain She specifically denies palpitations, rapid heart rate, anxiety, nervousness, fatigue, weakness, exopthalmos, sleep issues, change in appetite. Continues on tapazole 30mg daily. Reports taking as directed without missing any doses. She has not kept any appointments since her initial visit as her insurance is out of network. Vivien has been managed completely by labs and telephone. Weight and fatigue symptoms: Denies snoring Cardiopulmonary symptoms: Denies chest pain at rest, dyspnea on exertion, lightheadedness or myalgias GI symptoms: Reports constipation; denies diarrhea, nausea/dyspepsia or vomiting Other symptoms: Reports change in vision (bilat cataract surgery 2017); denies blurry vision Exam Const General: comfortable, no acute distress, not diaphoretic, not anxious Nutritional Appearance: average body habitus Orientation: oriented x3 HENMT Head: normal to inspection, atraumatic Ears: hearing grossly normal bilaterally Nose: no nasal discharge Mouth: oral mucosae normal, moist mucous membranes Throat: other Other: Thyroid ultrasound notes normal size thyroid with subcentimeter nodules bilateral. Eyes General: appearance normal, both eyes and all related structures Eyelids: eyelids normal Conjunctivae: conjunctivae normal Pupils: other (No exophthalmos) Neck Neck: normal visual inspection Neck mass: No Thyroid: multiple nodules Chest Chest palpation AND inspection: deferred Resp Effort AND Inspection: able to speak in complete sentences, normal respiratory effort, symmetric chest movement Auscultation: Bilateral: Clear to Auscultation Cardio Rate: regular rate Rhythm: regular rhythm Heart Sounds: S1 normal, S2 normal GI Inspection: normal to inspection Auscultation: normal bowel sounds Palpation: soft, no guarding General: deferred Skin General: no rashes or lesions noted, turgor normal Wounds: no wounds Neuro General: gait normal, moves all extremities Cognition: normal cognition Speech: speech normal Extrem General: no edema, normal to inspection, full ROM Psych Appearance: well kempt Mood: congruent mood Affect: normal affect Speech and Movement: speech and movement normal Attitude: cooperative Thought Process: normal Thought Content: normal Judgment: judgment good ROS Const Constitutional: Positive for night sweats, sleep problems, abnormal sleep pattern and change in appetite; no anorexia, body ache, chills, fatigue, fever(s), frequent falls, decreased energy, malaise, weakness, weight change, other, headache(s), snoring or excessive sweating Eyes Eyes: No blurry vision, change in vision, double vision, discharge, dry eyes, bulging eyes, floaters, visual disturbances, eye pain, light sensitivity, spots in vision, tunnel vision or other ENT ENT: No abnormal hearing, ear pain, ear discharge, ear pressure, hearing loss, tinnitus, dizziness/vertigo, balance problems, nosebleed/epistaxis, nasal congestion, nasal obstruction, nose pain, sinus pressure, sinus pain, nasal discharge, post nasal drip, headache(s), facial pain, dental pain, dry mouth, bad breath, hoarseness, lip swelling, mouth lesions, mouth pain, sore throat, tongue swelling, throat swelling, other, difficulty swallowing or neck pain Resp Respiratory: No cough, change in phlegm color, chest congestion, excessive phlegm production, hemoptysis, pain on inspiration, shortness of breath, pain with cough, snoring, stridor, wheezing or other Cardio Cardiology: No chest pain at rest, chest pain with exertion, leg pain with exertion, excessive sweating, shortness of breath, dyspnea on exertion, generalized swelling, irregular heart rhythm, lightheadedness, orthopnea, radiating jaw, neck or arm pain, fast heart rate, slow heart rate, palpitations or other Gastro GI: No abdominal pain, belching, bloating, change in bowel habits, change in stool character, coffee ground emesis, constipation, cramping, diarrhea, heartburn, difficulty swallowing, feeling full early, excessive flatus, incontinent of stools, Vomiting blood/hematemesis, blood in stool, loose stools, Black,tarry stools, nausea/dyspepsia, pain with swallowing, vomiting or other Genitourinary-Female: No difficulty urinating, burning urination, painful urination, urinary incontinence, urinary frequency, urinary urgency, urinary hesitancy, urinary retention, blood in urine, Frequent nighttime urination/ nocturia, post void dribbling, suprapubic fullness, side pain, sexual problems, genital lesions, genital itching, hot flashes, abnormal periods, abnormal vaginal bleeding, absent period, painful periods, light periods, heavy periods, difficulty getting , painful intercourse, pelvic pain, vaginal dryness, vaginal odor, Vaginal Itching or other Musc Musculoskeletal: No abnormal walking, joint pain, back pain, deformity, joint swelling, limited range of motion, loss of height, muscle cramps, muscle weakness, decreased muscle mass, body aches, neck pain, numbness, radiating pain into limb, stiffness, tingling or other Skin Skin: No acne, hair loss, change in hair, nail changes, boil, change in skin color, dry skin, redness, excessive hair growth, yellowing of the skin, lesions, itching, rash, skin pain, skin ulcer, sores, skin swelling, wounds or other Breast Breast: No other Neuro Neurology: No frequent falls, weakness, visual disturbances, abnormal hearing, headache(s), abnormal walking, numbness or tingling Psych Psychiatric: Positive for abnormal sleep pattern, Positive for change in appetite Endo Endocrine: No fatigue, other or excessive sweating Aller/Imm Allergy/Immunologic: No lip swelling, tongue swelling, throat swelling, wheezing or itchy eyes Exam Musc Musculoskeletal: No muscle weakness Assessment AND Plan Problems 1. Hyperthyroidism E05.90 Plan Lab 4 weeks Orders Orders: Plan Detail Additional Comments CBC immediately if you devvelop sore throat or fever. Coding Level of Care Code Off vis,est,level 4 Diagnoses Hyperthyroidism E05.90 Time Spent (min) 30 04/02/18 1810 <Electronically signed by Tiffani FLORES> Date Tiffani FLORES Cosigner Signature: Date (if applicable) CC: FREE T3 Collected: 03/30/2018 Status: F Source: [place] 4:45 PM [facility] [place] TYPE CODE TESTS RESULT OUT OF RANGE REFERENCE UNITS LAB L501.94779 2.18-3.98 pg/mL Low FREE T3 2.0 Performed By: #### L501.13806, L501.9520, L506.0400 #### [facility] [address] [place], [address] THYROID STIM HORMONE Collected: 03/30/2018 Status: F Source: [place] (TSH) 4:45 PM [facility] [place] TYPE CODE TESTS RESULT OUT OF RANGE REFERENCE UNITS LAB L501.9520 0.358-3.74 uIU/mL High TSH 5.47 Performed By: #### L501.00105, L501.9520, L506.0400 #### [facility] [address] [place], [address] T4 FREE DIRECT Collected: 03/30/2018 Status: F Source: [place] 4:45 PM [facility] [place] TYPE CODE TESTS RESULT OUT OF REFERENCE UNITS RANGE LAB L506.0400 0.76-1.46 ng/dL Low T4 FREE 0.50 DIRECT Performed By: #### L501.79639, L501.9520, L506.0400 #### [facility] [address] [place], [address] COMPREHENSIVE METABOLIC Collected: 02/01/2018 Status: F Source: [place] PROFIL 2:52 PM [facility] [place] TYPE CODE TESTS RESULT OUT OF RANGE REFERENCE UNITS LAB L501.0100 74-106 mg/dL Normal GLU 95 Result Comment: Please note revised GLUCOSE reference range effective 2017. LAB L501.1000 7-18 mg/dL High BUN 22 LAB L501.1100 0.55-1.02 mg/dL Normal CREAT,SERUM 0.71 Result Comment: The validity of the calculated GFR AND GFRAA in patients over 70 years has not been determined. Clinical correlation is essential. LAB L501.1110 >60 mL/min Normal EST GFR 86 Result Comment: Non- GFR Calc LAB L501.1115 >60 mL/min Normal EST GFR - AA 104 Result Comment: GFR Calc LAB L501.1300 10-20 RATIO High BUN/CRE 30.8 LAB L501.1500 6.4-8.2 g/dL T Normal PROT 7.7 LAB L501.1800 3.2-5.0 g/dL Normal ALB 3.6 LAB L501.1950 2.2-4.2 g/dL Normal GLOB 4.1 LAB L501.2000 0.9-2.4 RATIO Normal A/G 0.9 LAB L501.2200 8.5-10.1 mg/dL CA Normal 9.0 LAB L501.4100 15-37 U/L Normal AST 30 LAB L501.4305 45-117 U/L High ALK P 246 LAB L501.4405 13-56 U/L Normal ALT 29 LAB L501.4600 0.20-1.00 mg/dL Low T BILI 0.10 LAB L501.5300 136-145 mmol/L NA Normal 141 LAB L501.5600 3.5-5.1 mmol/L K Normal 4.2 LAB L501.5900 98-107 mmol/L CL Normal 104 LAB L501.6100 21.0-32.0 mmol/L Normal CO2 30.0 LAB L501.6200 5-15 Normal GAP 7 Performed By: #### L500.4050, L501.80883, L501.9520, L506.0400 #### [facility] [address] [place], [place], [id number] FREE T3 Collected: 02/01/2018 Status: F Source: [place] 2:52 PM [facility] TYPE CODE TESTS RESULT OUT OF RANGE REFERENCE UNITS LAB L501.20646 2.18-3.98 pg/mL Normal FREE T3 3.2 Performed By: #### L500.4050, L501.22133, L501.9520, L506.0400 #### [facility] [address] [place], [place], [id number] THYROID STIM HORMONE Collected: 02/01/2018 Status: F Source: [place] (TSH) 2:52 PM [facility] TYPE CODE TESTS RESULT OUT OF RANGE REFERENCE UNITS LAB L501.9520 0.358-3.74 uIU/mL Low TSH < 0.01 Performed By: #### L500.4050, L501.76214, L501.9520, L506.0400 #### [facility] [address] [place], [address] T4 FREE DIRECT Collected: 02/01/2018 Status: F Source: [place] 2:52 PM [facility] TYPE CODE TESTS RESULT OUT OF RANGE REFERENCE UNITS LAB L506.0400 0.76-1.46 ng/dL Normal T4 FREE 0.92 DIRECT Performed By: #### L500.4050, L501.54568, L501.9520, L506.0400 #### [facility] [address] [place], [place], [id number] FREE T3 Collected: 11/08/2017 Status: F Source: [place] 2:08 PM [facility] Order Comment: Comments: [id number] TRAB TYPE CODE TESTS RESULT OUT OF RANGE REFERENCE UNITS LAB L501.40590 2.18-3.98 pg/mL High FREE T3 9.8 Performed By: #### L501.38653, L501.9520, L506.0400 #### [facility] [address] [place], [place], [id number] THYROID STIM HORMONE Collected: 11/08/2017 Status: F Source: [place] (TSH) 2:08 PM [facility] Order Comment: Comments: [id number] TRAB TYPE CODE TESTS RESULT OUT OF RANGE REFERENCE UNITS LAB L501.9520 0.358-3.74 uIU/mL Low TSH < 0.01 Performed By: #### L501.47371, L501.9520, L506.0400 #### [facility] [address] [place], [place], [id number] T4 FREE DIRECT Collected: 11/08/2017 Status: F Source: [place] 2:08 PM [facility] Order Comment: Comments: [id number] TRAB TYPE CODE TESTS RESULT OUT OF REFERENCE UNITS RANGE LAB L506.0400 0.76-1.46 ng/dL High T4 FREE 3.07 DIRECT Performed By: #### L501.76020, L501.9520, L506.0400 #### [facility] [address] [place], [address] THYROID ANTIBODIES Collected: 11/08/2017 Status: F Source: CHUCKY 2:08 PM [facility] TYPE CODE TESTS RESULT OUT OF RANGE REFERENCE UNITS LAB L3300.6900 0-34 IU/mL Normal TPO AB 14 6676 LAB L3300.7027 0.0-0.9 IU/mL Normal TG AB < 1.0 Result Comment: Thyroglobulin Antibody measured by Afua Ordoro Methodology Performed at: - [facility] [id number] Nutrition Assistant: Rudy Odonnell PhD, Phone: [phone] Performed By: #### L3300.6750 #### [facility] (refer to report for specific site) refer to report for address and phone number ALLERGIES ALLERGIES DATE TYPE / CODE NAME / CODE REACTION SEVERITY SOURCE 09/21/2018 Drug No Known Unknown [facility] Allergy/4160 Allergies/F00 Hospital 08901(SNOMED 2637022(RXNOR Repository CT) M) ENCOUNTERS ENCOUNTERS ADMIT/DISCHARGE ACCOUNT NUMBER ADMITTING ENCOUNTER LOCATION SOURCE CLASS 09/28/2018 [id number] [facility] ding:LAB Repository 09/22/2018 [id number] [facility] ding:LABSPEC Repository 09/21/2018/09/21/20 [id number] Ambulatory BMSBuilding: [place] [facility] Repository 09/19/2018/09/19/20 [id number] Ambulatory BBuilding:[place] [address] Repository 09/15/2018/09/15/20 [id number] Ambulatory BMSBuilding: [place] 18 [facility] Repository 08/31/2018/08/31/20 [id number] Ambulatory BBuilding: [address] Repository 08/22/2018 [id number] Ambulatory [facility] ding:US Repository 08/17/2018/08/17/20 [id number] Ambulatory BMSBuilding: [place] 18 BMS.[facility] Repository 08/05/2018 [id number] Ambulatory [facility] ding:LAB Repository 04/29/2018 [id number] Ambulatory [facility] ding:LAB Repository 03/30/2018 [id number] Ambulatory [facility] ding:LAB Repository 03/30/2018/06/20 [id number] Ambulatory BMSBuilding: [place] 18 BMS.[facility] Repository 02/01/2018 [id number] [facility] 11/08/2017 [id number] Ambulatory [place] [facility] ding:LAB Repository PAYERS PAYERS ENCOUNTER GUARANTOR PAYER SUBSCRIBER SOURCE 09/28/2018 LISSET Nickerson Primary L[place] S Insurance:MEDICARE SUMMERSDOB: Community [place] PART A [facility] [id number] Number: Repository , [place] [address]Egp: [id number] Date:2018-09-28 () 09/28/2018 Secondary [place] M [place] Insurance:AULTCAREPol SUMMERSDOB: [facility]ly [facility] icy Number: [id number] Hospital [id number] Repository Date:0961-98-83EG [facility] [address] [place] [address]AM: 09/28/2018 Tertiary NOT GIVENUNK [place] Insurance:SELF PAY [facility] Number: Effective Repository Date:2018-09-28 09/22/2018 LISSET M Primary L[place] S Insurance:MEDICARE SUMMERSDOB: Community [place] PART A [facility] [id number] Number: Repository , [place] [address]Vls: [id number] Date:2018-09-22 () 09/22/2018 Secondary LISSET Krishan [place] Insurance:AULTCAREPol SUMMERSDOB: [facility]ly [facility] icy Number: [id number] Hospital [id number] Repository Date:0866-51-03VN [address], [place] [address]BB: 09/22/2018 Tertiary NOT GIVENUNK [place] Insurance:SELF PAY [facility] Number: Effective Repository Date:2018-09-22 09/21/2018 LISSET M Primary LISSETJUAN [place] [id number] S Insurance:MEDICARE SUMMERSDOB: Community [place] PART A [facility] [id number] [facility] System [facility] Number: Repository , [place] [address]Fub: [id number] Date:2018-09-15 () 09/21/2018 Secondary [place] M [place] Insurance:AULTCAREPol SUMMERSDOB: [facility]ly [facility] icy Number: [id number] Hospital [id number] Repository Date:3437-17-26KU [address] [place] [address]UY: 09/21/2018 Tertiary NOT GIVENUNK [place] Insurance:SELF PAY [facility] Number: Effective Repository Date:2018-09-21 09/19/2018 LISSET M Primary [facility] SUMMERSDOB: Insurance:MEDICARE SUMMERSDOB: [facility] [id number] S [facility] [id number] Repository [place] Number: [address] [place] [employer] [id number] [place], [place] [address]Mln: Date:2018-09-12 [place], [place] [address]Tmq: [id number] () Name:[facility] ()Tel: [phone] Wihbdvycqfdkep PZUYT [phone] () [address], [place] [address]YX: 09/19/2018 Secondary [facility] Insurance:AULTCARE SUMMERSDOB: [address] Number: [id number] Repository [id number] [address] [place] Date:2018-09-12 - [employer] [facility] [id number] , [place] [address]Oyf: Name:[facility] [address] [place] [address] ()Tel: [phone]: [phone] 09/15/2018 NATTY Pringle Primary [place] M [place] [id number] S Insurance:MEDICARE SUMMERSDOB: [facility]ly [facility] [place] PART A [facility] [id number] [facility] HospitalTR[facility] Number: Repository , [place] [address]Rfk: [id number] Date:2018-09-07 () 09/15/2018 Secondary [place] M [place] Insurance:AULTCAREPol SUMMERSDOB: [facility] icy Number: [id number] Hospital [id number] Repository Date:2422-46-99CW [address] [place] [address]AZ: 09/15/2018 Tertiary NOT GIVENUNK [place] Insurance:SELF PAY [facility] Number: Effective Repository Date:2018-09-13 08/31/2018 LISSET M Primary [facility] SUMMERSDOB: Insurance:MEDICARE SUMMERSDOB: [facility] [id number] S PART B INSCOPolicy [id number] Repository [place] Number: [address] [place] [employer] [id number] [place], [place] [address]Cnr: Date:2018-08-25 [place], [place] [address]Pdh: [id number] ()Tel: ([phone]) Name:[facility] () () [employer] [phone] () [address] [place] [address]XZ: 08/31/2018 Secondary [facility] Insurance:AULTCARE SUMMERSDOB: [place] [address]APolicy Number: [id number] Repository [id number] [address] [place] Date:2018-08-25 - [employer] [id number] , [place] [address]Bxu: Name:[facility] [address] [place] [address] ()Tel: [phone]: [phone] 08/22/2018 NATTY Pringle Primary [place] M [place] [id number] S Insurance:MEDICARE SUMMERSDOB: [facility] [place] PART A BPolicy [id number] [facility] Number: Repository , [place] [address]Iyh: [id number] Date:2018-08-17 () 08/22/2018 Secondary [place] M [place] Insurance:AULTCAREPol SUMMERSDOB: Community icy Number: [id number] Hospital [id number] Repository Date:7553-87-94UZ [address], [place] [address]AT: 08/22/2018 Tertiary NOT GIVENUNK [place] Insurance:SELF PAY [facility] Number: Effective Repository Date:2018-08-17 08/17/2018 Natty Pringle Primary [place] M [place] [id number] S Insurance:MEDICARE SUMMERSDOB: Community [place] PART A [facility] [id number] Number: Repository , [place] [address]Fdc: [id number] Date:2018-08-04 () 08/17/2018 Secondary [place] M [place] Insurance:AULTCAREPol SUMMERSDOB: Community icy Number: [id number] Hospital [id number] Repository Date:1223-49-21PJ [address], [place] [address]XW: 08/17/2018 Tertiary NOT GIVENUNK [place] Insurance:SELF PAY [facility] Number: Effective Repository Date:2018-08-17 08/05/2018 Natty Pringle Primary L[place] M [place] [id number] S Insurance:MEDICARE SUMMERSDOB: Community [place] PART A [facility] [id number] Shepherd Specialty Hospital Number: Repository , [place] [address]Avr: [id number] Date:2018-08-05 () 08/05/2018 Secondary [place] M [place] Insurance:AULTCAREPol SUMMERSDOB: Community icy Number: [id number] Hospital [id number] Repository Date:2253-27-35KC [address] [address]VB: 08/05/2018 Tertiary NOT GIVENUNK [place] Insurance:SELF PAY [facility] Number: Effective Repository Date:2018-08-05 04/29/2018 Natty Pringle Primary LISSET M [place] [id number] S Insurance:MEDICARE SUMMERSDOB: Community [place] PART A [facility] [id number] Shepherd Specialty Hospital Number: Repository , [place] [address]Xso: [id number] Date:2018-04-29 () 04/29/2018 Secondary [place] M [place] Insurance:AULTCAREPol SUMMERSDOB: Community icy Number: [id number] Hospital [id number] Repository Date:2688-00-54HK [address], [place] [address]NF: 04/29/2018 Tertiary NOT GIVENUNK [place] Insurance:SELF PAY [facility] Number: Effective Repository Date:2018-04-29 03/30/2018 Natty L Primary [place] M [place] [id number] S Insurance:MEDICARE SUMMERSDOB: Community [place] PART A [facility] [id number] Shepherd Specialty Hospital Number: Repository , [place] [address]Eyd: [id number] Date:2018-03-30 () 03/30/2018 Secondary [place] M [place] Insurance:AULTCAREPol SUMMERSDOB: Community icy Number: [id number] Hospital [id number] Repository Date:4968-42-58GY [address], [place] [address]JY: 03/30/2018 Tertiary NOT GIVENUNK [place] Insurance:SELF PAY [facility] Number: Effective Repository Date:2018-03-30 03/30/2018 Natty L Primary [place] M [place] [id number] S Insurance:MEDICARE SUMMERSDOB: Community [place] PART A [facility] [id number] [facility] Specialty Hospital Number: Repository , [place] [address]Cnr: [id number] Date:2018-02-17 () 03/30/2018 Secondary [place] M [place] Insurance:AULTCAREPol SUMMERSDOB: Community icy Number: [id number] Hospital [id number] Repository Date:0441-47-63VV [address], [place] [address]QB: 03/30/2018 Tertiary NOT GIVENUNK [place] Insurance:SELF PAY [facility] Effective Repository Date:2018-03-30 02/01/2018 Natty Pringle Primary L[place] M [place] [id number] S Insurance:MEDICARE SUMMERSDOB: Community [place] PART A [facility] [id number] [facility] Number: Repository , [place] [address]Yzb: [id number] Date:2018-02-01 () 02/01/2018 Secondary [place] M [place] Insurance:AULTCAREPol SUMMERSDOB: Community icy Number: [id number] Hospital [id number] Repository Date:5292-65-81GY [address], [place] [address]YF: 02/01/2018 Tertiary NOT GIVENUNK [place] Insurance:SELF PAY [facility] Number: Effective Repository Date:2018-02-01 11/08/2017 Natty Pringle Primary LISSET M [place] [id number] S Insurance:MEDICARE SUMMERSDOB: Community [place] PART A [facility] [id number] Shepherd Specialty Hospital Number: Repository , [place] [address]Wxt: [id number] Date:2017-11-08 () 11/08/2017 Secondary [place] M [place] Insurance:AULTCAREPol SUMMERSDOB: Community icy Number: [id number] Hospital [id number] Repository Date:6939-71-71ZQ [address] [address]CT: 11/08/2017 Tertiary NOT GIVENUNK [place] Insurance:SELF PAY [facility] Number: Effective Repository Date:2017-11-08
== END ==
PROVIDERS: Family Provider Nurse Practitioner Family; PCP Nurse Practitioner Family; Referring Provider Surgery; Visit Provider Surgery
DX: E04.1 Nontoxic single thyroid nodule (principal)
CPT/HCPCS: 88161; 88313

== ENCOUNTER → 2018-09-28 13:24 | Outpatient (CLI) | payer MEDICARE, OTHER, SELFPAY ==
[2018-09-15 10:31] VITALS: BMI 35.2
[2018-09-28 14:31] LABS: AST(SGOT) 27 U/L (15-37); Alanine Aminotransfer ALT/SGPT 28 U/L (13-56); T4 Free Direct 1.07 ng/dL (0.76-1.46); Thyroid Stim Hormone (TSH) 1.13 uIU/mL (0.358-3.74)
--- OUTSIDE RECORDS SUMMARY | 2018-12-30 18:50 | XMS RPT_ITS ---
:1945 Author Organization OHIP Support Name Relationship Address Phone R Unavailable Unavailable Unavailable IGOR HERRERANETH Unavailable [address] + [place] [address] R Unavailable Unavailable Unavailable MIGUEL NATTY Unavailable [address] + [place] [address] R Unavailable Unavailable Unavailable IGOR HERRERANETH Unavailable [address] + [place] [address] NATTY HERRERA Unavailable Unavailable + NATTY HERRERA Unavailable Unavailable + R Unavailable Unavailable Unavailable IGOR HERRERANETH Unavailable [address] + [place] [address] PLEASE ASK Unavailable Unavailable Unavailable IGOR HERRERANETH Unavailable Unavailable + R Unavailable Unavailable Unavailable IGOR HERRERANETH Unavailable [address] + [place] [address] R Unavailable Unavailable Unavailable IGOR HERRERANETH Unavailable [address] + [place] [address] R Unavailable Unavailable Unavailable MIGUEL NATTY Unavailable [address] + [place] [address] R Unavailable Unavailable Unavailable IGOR HERRERANETH Unavailable [address] + [place] [address] R Unavailable Unavailable Unavailable MIGUEL NATTY Unavailable [address] + [place] [address] R Unavailable Unavailable Unavailable HERRERA, NATTY Unavailable [address] + [place] [address] R Unavailable Unavailable Unavailable HERRERA, NATTY Unavailable [address] + [place] [address] R Unavailable Unavailable Unavailable HERRERA, NATTY Unavailable [address] + [place] [address] Care Team Providers Name Role Phone DIDIER DUNN CNP Attending Unavailable DIDIER DUNN CNP Primary Care Unavailable LAURA HOLT, DR. LOONEY Attending Unavailable DIDIER DUNN CNP Primary Care Unavailable Lukasz Grace Attending Unavailable Didier Dunn ASSISTANT BASKETBALL COACH-C Referring Unavailable Lukasz Grace Attending Unavailable Lukasz Grace Referring Unavailable Didier Dunn ASSISTANT BASKETBALL COACH-C Primary Care Unavailable Tiffani Vaughan ASSISTANT BASKETBALL COACH-C Attending Unavailable Tiffani Vaughan ASSISTANT BASKETBALL COACH-C Referring Unavailable Didier Dunn ASSISTANT BASKETBALL COACH-C Primary Care Unavailable Tiffani Vaughan ASSISTANT BASKETBALL COACH-C Attending Unavailable DIDIER DUNN Primary Care Unavailable Tiffani Vaughan ASSISTANT BASKETBALL COACH-C Attending Unavailable Tiffani Vaughan ASSISTANT BASKETBALL COACH-C Referring Unavailable DIDIER DUNN Primary Care Unavailable Tiffani Vaughan ASSISTANT BASKETBALL COACH-C Attending Unavailable DIDIER DUNN Referring Unavailable Tiffani Vaughan ASSISTANT BASKETBALL COACH-C Attending Unavailable Tiffani Vaughan ASSISTANT BASKETBALL COACH-C Referring Unavailable Didier Dunn ASSISTANT BASKETBALL COACH-C Primary Care Unavailable Tiffani Vaughan ASSISTANT BASKETBALL COACH-C Attending Unavailable Tiffani Vaughan ASSISTANT BASKETBALL COACH-C Referring Unavailable Didier Dunn ASSISTANT BASKETBALL COACH-C Primary Care Unavailable Tiffani Vaughan ASSISTANT BASKETBALL COACH-C Attending Unavailable Tiffani Vaughan ASSISTANT BASKETBALL COACH-C Referring Unavailable Didier Dunn ASSISTANT BASKETBALL COACH-C Primary Care Unavailable Tiffani Vaughan ASSISTANT BASKETBALL COACH-C Attending Unavailable Didier Dunn ASSISTANT BASKETBALL COACH-C Referring Unavailable Tiffani Vaughan ASSISTANT BASKETBALL COACH-C Attending Unavailable Tiffani Vaughan ASSISTANT BASKETBALL COACH-C Referring Unavailable Didier Dunn ASSISTANT BASKETBALL COACH-C Primary Care Unavailable Lukasz Grace Attending Unavailable Didier Dunn ASSISTANT BASKETBALL COACH-C Referring Unavailable PROBLEMS PROBLEMS DATE TYPE CONDITION / CODE ATTENDING STATUS SOURCE 09/21/2018 Unknown 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, 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 [facility] Hospital E04.2(ICD-10) Repository 03/30/2018 Unknown 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 - Tiffani Vaughan Active [place] Thyrotoxicosis, ASSISTANT BASKETBALL COACH-C Community unspecified Hospital without thyrotoxic Repository crisis or storm / E05.90(ICD-10) PROCEDURES PROCEDURES No Procedure Records FoundRESULTS RESULTS AST(SGOT) Collected: 09/28/2018 Status: F Source: [place] 1:28 PM [facility] [place] [place] REPOSITORY TYPE CODE TESTS RESULT OUT OF RANGE REFERENCE UNITS LAB L501.4100 15-37 U/L Normal AST 27 Performed By: #### L501.4100, L501.4405, L501.03780, L501.9520, L506.0400 #### [facility] [address] [place], [place], [id number] ALANINE AMINOTRANSFERAS Collected: 09/28/2018 Status: F Source: [place] (SGPT) 1:28 PM [facility] [place] [place] REPOSITORY TYPE CODE TESTS RESULT OUT OF RANGE REFERENCE UNITS LAB L501.4405 13-56 U/L Normal ALT 28 Performed By: #### L501.4100, L501.4405, L501.92467, L501.9520, L506.0400 #### [facility] [address] [place] [employer] [place], [place], [address] FREE T3 Collected: 09/28/2018 Status: F Source: [place] 1:28 PM [facility] [place] [place] REPOSITORY TYPE CODE TESTS RESULT OUT OF RANGE REFERENCE UNITS LAB L501.20225 2.18-3.98 pg/mL Normal FREE T3 3.0 Performed By: #### L501.4100, L501.4405, L501.94144, L501.9520, L506.0400 #### [facility] [address] [place], [address] THYROID STIM HORMONE Collected: 09/28/2018 Status: F Source: [place] (TSH) 1:28 PM [facility] [place] [place] REPOSITORY TYPE CODE TESTS RESULT OUT OF RANGE REFERENCE UNITS LAB L501.9520 0.358-3.74 uIU/mL Normal TSH 1.13 Performed By: #### L501.4100, L501.4405, L501.82228, L501.9520, L506.0400 #### [facility] [address], [address] T4 FREE DIRECT Collected: 09/28/2018 Status: F Source: [place] 1:28 PM [facility] [place] [place] REPOSITORY TYPE CODE TESTS RESULT OUT OF RANGE REFERENCE UNITS LAB L506.0400 0.76-1.46 ng/dL Normal T4 FREE 1.07 DIRECT Performed By: #### L501.4100, L501.4405, L501.76344, L501.9520, L506.0400 #### [facility] [address], [address] SURGERY VISIT REPORT Observed: 09/21/2018 Status: F Source: [place] 3:22 PM [facility] [place] [place] REPOSITORY [facility] [address] [place] [address] OFFICE VISIT Date of Service: 09/21/18 MR#: [id number] Acct: [id number] Name: LISSET HERRERA Krishan Rep #: [id number] : 1945 Provider: Lukasz Grace MD Age/Sex: 73/F Location: [facility] Status: Signed Intake Intake Visit Reasons: left thyroid FNA Manager Music Required: No Is patient in pain?: No [...] 250 mg-E 200 unit-zinc 40 mg-copper 1 lu-gxjcbf-rtvtnf capsule 1 tab PO BID 08/17/18 [History [...] pole of the left lobe. A rapid nnaa-qws-ckyuh motion was performed. Specimen was obtained and smeared out on slides. The slides were treated immediately with fixative. 3 separate passes were performed. She tolerated the procedure well. She was given activity and wound care instructions. Lukasz Grace M.D., F.A.C.S. Alert Pilar Alert Billing: Yes FNA 06751 Thyroid Assessment AND Plan Problems 1. Multiple [...] Additional Codes FNA - Fine Needle Aspiration: 84661 Thyroid (48342) 09/21/18 1522 <Electronically signed by Lukasz Grace MD> Date Lukasz Grace MD Cosigner Signature: Date (if applicable) CC: Tiffani Vaughan ASSISTANT BASKETBALL COACH; ROBINAC Didier Dunn ASPIRATION (SLIDES Observed: 09/21/2018 Status: F Source: [place] ONLY) 3:00 PM [facility] [place] [place] REPOSITORY Patient: LISSET HERRERA : 1945 (73/F) Acct Num: [id number] Phys: Lesly LOPEZ,Lukasz Unit Num: [id number] Loc: [facility] Specimen: [id number] Received: 09/22/18 - 1011 Spec Type: ASPIRATION TISSUES 1 TISSUES: Thyroid gland, NOS CYTOLOGY GROSS Received are six smears labeled with the patient's name and designated per the requisition as left thyroid. Submitted for staining. / 09/22/18 TC:5 CPT: 96027 CYTOLOGY STUDY Slides are reviewed. DIAGNOSIS CYTOLOGY Fine needle aspiration, left thyroid nodule (smears): Adequate for evaluation. Negative, consistent with benign follicular nodule. AM:katya 09/23/18 HEADER OPERATION: Left thyroid FNA PRE-OP DIAGNOSIS: Left thyroid nodule TISSUE SUBMITTED: Left thyroid slides x6 Signed Win Abel, DO 09/23/18 <signature on file> Performed By: #### PASPS #### [facility] [address] [place] [address]. [place], [address] FINAL SURGICAL Observed: 09/19/2018 Status: F Source: [facility] PATHOLOGY REPORT 10:17 AM [facility] REPOSITORY . Pathology Reports Accession: Collected Date/Time: Received Date/Time: Pathologist: [id number] 09/19/2018 10:17 EST 09/20/2018 09:53 MD DIDIER ROSARIO Final Surgical Pathology Report DIAGNOSIS: A) SIGMOID COLON, BIOPSY: TUBULAR ADENOMA. B) CECUM, BIOPSY: TUBULAR ADENOMA. C) TRANSVERSE COLON, BIOPSY: TUBULAR ADENOMA. COMMENT: [facility] Aliya # [id number] CLINICAL INFORMATION: Procedure: COLONOSCOPY WITH HOT SNARE [...] cm. TS -1 Dictated by Ibeth [facility] MICROSCOPIC DESCRIPTION: A,B&C) Slides reviewed. Electronically Signed by Pathology Report verified by [facility] Electronically signed by DIDIER ESTRADA MD Sign out Date: 09/21/2018 08:58 Performing Lab: [facility], [address] [place] [address] Performed By: #### SPFR #### [place] [address] SURGERY VISIT REPORT Observed: 09/15/2018 Status: F Source: [place] 10:31 AM [facility] [address] [place] [address] OFFICE VISIT Date of Service: 09/15/18 MR#: [id number] Acct: [id number] Name: LISSET HERRERA Rep #: [id number] : 1945 Provider: Lukasz Grace MD Age/Sex: 73/F Location: [facility] Status: Signed Intake Vital Signs09/15/18 Height 5 ft 1.5 in 09/15/18 Weight: 185 lb 09/15/18 Body Mass Index (BMI) 34.4 Intake Visit Reasons: Thyroid Consult [facility] Allergies No Known Allergies Allergy (Unverified [...] 250 mg-E 200 unit-zinc 40 mg-copper 1 fy-bcysrx-iqyxlo capsule 1 tab PO BID 08/17/18 [History [...] Liver function tests were normal. At the [facility] on August 22, 2018 thyroid ultrasound was [...] Signature: Date (if applicable) CC: Tiffani Vaughan ASSISTANT BASKETBALL COACH; ASSISTANT BASKETBALL COACH-C Didier Dunn MA MAMMOGRAM SCREENING Observed: 08/31/2018 Status: F Source: [facility] BILATERAL W/PETE 11:00 AM FOUNDATION REPOSITORY ORIGINAL FROM: [place] [address] PROCEDURE FOR: LISSET HERRERA [address] [place] [id number] Home: PID#: [id number] Exam#: [id number] : 1945 Age: 73 TO: DIDIER DUNN APRN [place] [address] #[id number] BILATERAL DIGITAL SCREENING MAMMOGRAM 3D/2D WITH CAD WITH MEDIOLATERAL OBLIQUE CRANIOCAUDAL: 08/31/2018 Comparison is made to exams dated: 07/05/2017 mammogram and 07/02/2015 mammogram - [facility]. There are scattered fibroglandular elements in both breasts. Current study was also evaluated with a Computer Aided Detection (CAD) system. No significant masses, calcifications, or other findings are seen in either breast. There has been no significant interval change. IMPRESSION: NEGATIVE There is no mammographic evidence of malignancy. A 1 year screening mammogram is recommended.(09/01/2019) MALLY VALLE MD ab/penrad:08/31/2018 16:15:20 Fur Puller(s): ALEC ABEBE RT(R), [facility] letter sent: Normal BI-RADS 1&2 Mammogram BI-RADS: 1 Negative THYROID Observed: 08/22/2018 Status: F Source: [place] 12:22 PM [facility] [place] [place] REPOSITORY [facility] Imaging Services [address] [place], [place] [address] [address] Thyroid MR#: [id number] Acct: [id number] Name: LISSET HERRERA Rep #: [id number] : 1945 F 73 From: Jairon Mars DO PCP: MARK Orellana Status: REG CLI Study: Thyroid Date of Exam: 08/22/18 Exam# [id number] Ordering Dr: Tiffani Vaughan STUDY: THYROID ULTRASOUND [...] Jairon Mars DO at 16:01 EST Tel [phone], Service support , CC: Tiffani Vaughan NP; MARK Dunn Welder [employer]ung[employer] Arc: Signed OFFICE VISIT REPORT Observed: 08/17/2018 Status: F Source: [place] 7:[address] [place] [address] OFFICE VISIT Date of Service: 08/17/18 MR#: [id number] Acct: [id number] Patient: LISSET HERRERA Rep #: [id number] : 1945 Provider: Tiffani Vaughan NP Age/Sex: 73/F Location: [facility] Status: Signed Intake Vital Signs08/17/18 Height 5 ft 1 in 08/17/18 Weight: 186 lb 2 oz 08/17/18 Body Mass Index (BMI) 35.2 08/17/18 Blood Pressure 116/74 08/17/18 Blood Pressure Location Lt popliteal 08/17/18 Blood Pressure Position Sitting Intake Visit Reasons: Thyroid dysfunction Manager Music Required: No Accompanied by: Self Allergies No [...] 250 mg-E 200 unit-zinc 40 mg-copper 1 kh-lwxwvl-ikkngg capsule 1 tab PO BID 08/17/18 [History [...] Other Orders Orders: Other Medications New: vit C,P-Xj-gdhyq-lutein-zeaxan 562-125-72-1 ub-otwc-si-mg (PreserVision ARED1 tab PO BID S-2) Additional [...] 08/05/2018 Status: F Source: [place] 10:48 AM [facility] [place] [place] REPOSITORY TYPE CODE TESTS RESULT OUT OF RANGE REFERENCE UNITS LAB L501.36854 2.18-3.98 pg/mL Normal FREE T3 2.7 Performed By: #### L501.02003, L501.9520, L506.0400 #### [facility] [address] [place], [address] THYROID STIM HORMONE Collected: 08/05/2018 Status: F Source: [place] (TSH) 10:48 AM [facility] [place] [place] REPOSITORY TYPE CODE TESTS RESULT OUT OF RANGE REFERENCE UNITS LAB L501.9520 0.358-3.74 uIU/mL High TSH 12.90 Performed By: #### L501.97976, L501.9520, L506.0400 #### [facility] [address], [address] T4 FREE DIRECT Collected: 08/05/2018 Status: F Source: [place] 10:48 AM [facility] [place] [place] REPOSITORY TYPE CODE TESTS RESULT OUT OF RANGE REFERENCE UNITS LAB L506.0400 0.76-1.46 ng/dL Normal T4 FREE 0.81 DIRECT Performed By: #### L501.27356, L501.9520, L506.0400 #### [facility] [address], [address] COMPREHENSIVE METABOLIC Collected: 04/29/2018 Status: F Source: [place] PROFIL 8:35 AM [facility] [place] [place] REPOSITORY TYPE CODE TESTS RESULT OUT OF [...] Normal GAP 10 Performed By: #### L500.4050, L501.20734, L501.9520, L506.0400 #### [facility] [address] [place], [place], [address] FREE T3 Collected: 04/29/2018 Status: F Source: [place] 8:35 AM [facility] [place] [place] REPOSITORY TYPE CODE TESTS RESULT OUT OF RANGE REFERENCE UNITS LAB L501.68316 2.18-3.98 pg/mL Normal FREE T3 2.2 Performed By: #### L500.4050, L501.97306, L501.9520, L506.0400 #### [facility] [address] [place], [place], [address] THYROID STIM HORMONE Collected: 04/29/2018 Status: F Source: [place] (TSH) 8:35 AM [facility] TYPE CODE TESTS RESULT OUT OF RANGE REFERENCE UNITS LAB L501.9520 0.358-3.74 uIU/mL High TSH 20.50 Performed By: #### L500.4050, L501.41775, L501.9520, L506.0400 #### [place] [facility] [address] [place], [address] T4 FREE DIRECT Collected: 04/29/2018 Status: F Source: [place] 8:35 AM [facility] [place] [place] REPOSITORY TYPE CODE TESTS RESULT OUT OF REFERENCE UNITS RANGE LAB L506.0400 0.76-1.46 ng/dL Low T4 FREE 0.49 DIRECT Performed By: #### L500.4050, L501.48564, L501.9520, L506.0400 #### [place] [facility] [address] [place], [address] OFFICE VISIT REPORT Observed: 04/02/2018 Status: F Source: [place] 6:10 PM [facility] [place] [place] REPOSITORY [facility] [address] [address] OFFICE VISIT Date of Service: 03/30/18 MR#: [id number] Acct: [id number] Patient: LISSET HERRERA Rep #: [id number] : 1945 Provider: Tiffani Vaughan NP Age/Sex: 72/F Location: [facility] Status: Signed Intake Vital Signs03/30/18 Height 5 ft 1 in 03/30/18 Weight: 172 lb 2 oz 03/30/18 Body Mass Index (BMI) 32.5 03/30/18 Blood Pressure 136/78 03/30/18 Blood Pressure Location Lt popliteal 03/30/18 Blood Pressure Position Sitting Intake Visit Reasons: THYROID Manager Music Required: No Accompanied by: Self Is patient [...] 03/30/2018 Status: F Source: [place] 4:45 PM [facility] [place] [place] REPOSITORY TYPE CODE TESTS RESULT OUT OF RANGE REFERENCE UNITS LAB L501.17105 2.18-3.98 pg/mL Low FREE T3 2.0 Performed By: #### L501.28790, L501.9520, L506.0400 #### [facility] [address] [place], [address] THYROID STIM HORMONE Collected: 03/30/2018 Status: F Source: [place] (TSH) 4:45 PM [facility] [place] [place] REPOSITORY TYPE CODE TESTS RESULT OUT OF RANGE REFERENCE UNITS LAB L501.9520 0.358-3.74 uIU/mL High TSH 5.47 Performed By: #### L501.61810, L501.9520, L506.0400 #### [facility] [address] [place], [address] T4 FREE DIRECT Collected: 03/30/2018 Status: F Source: [place] 4:45 PM [facility] [place] [place] REPOSITORY TYPE CODE TESTS RESULT OUT OF REFERENCE UNITS RANGE LAB L506.0400 0.76-1.46 ng/dL Low T4 FREE 0.50 DIRECT Performed By: #### L501.15394, L501.9520, L506.0400 #### [facility] [address] [place], [address] COMPREHENSIVE METABOLIC Collected: 02/01/2018 Status: F Source: [place] PROFIL 2:52 PM [facility] [place] [place] REPOSITORY TYPE CODE TESTS RESULT OUT OF [...] Normal GAP 7 Performed By: #### L500.4050, L501.20250, L501.9520, L506.0400 #### [facility] [address] [place], [place], [address] FREE T3 Collected: 02/01/2018 Status: F Source: [place] 2:52 PM [facility] [place] [place] REPOSITORY TYPE CODE TESTS RESULT OUT OF RANGE REFERENCE UNITS LAB L501.51306 2.18-3.98 pg/mL Normal FREE T3 3.2 Performed By: #### L500.4050, L501.30457, L501.9520, L506.0400 #### [facility] [address] [place], [place], [address] THYROID STIM HORMONE Collected: 02/01/2018 Status: F Source: [place] (TSH) 2:52 PM [facility] [place] [place] REPOSITORY TYPE CODE TESTS RESULT OUT OF RANGE REFERENCE UNITS LAB L501.9520 0.358-3.74 uIU/mL Low TSH < 0.01 Performed By: #### L500.4050, L501.13899, L501.9520, L506.0400 #### [facility] [address] [place], [address] T4 FREE DIRECT Collected: 02/01/2018 Status: F Source: [place] 2:52 PM [facility] [place] [place] REPOSITORY TYPE CODE TESTS RESULT OUT OF RANGE REFERENCE UNITS LAB L506.0400 0.76-1.46 ng/dL Normal T4 FREE 0.92 DIRECT Performed By: #### L500.4050, L501.99417, L501.9520, L506.0400 #### [facility] [address] [place], [place], [address] FREE T3 Collected: 11/08/2017 Status: F Source: [place] 2:08 PM [facility] [place] [place] REPOSITORY Order Comment: Comments: [id number] TRAB TYPE CODE TESTS RESULT OUT OF RANGE REFERENCE UNITS LAB L501.74844 2.18-3.98 pg/mL High FREE T3 9.8 Performed By: #### L501.35946, L501.9520, L506.0400 #### [facility] [address] [place], [place], [address] THYROID STIM HORMONE Collected: 11/08/2017 Status: F Source: [place] (TSH) 2:08 PM [facility] [place] [place] REPOSITORY Order Comment: Comments: [id number] TRAB TYPE CODE TESTS RESULT OUT OF RANGE REFERENCE UNITS LAB L501.9520 0.358-3.74 uIU/mL Low TSH < 0.01 Performed By: #### L501.29213, L501.9520, L506.0400 #### [facility] [address] [place], [place], [address] T4 FREE DIRECT Collected: 11/08/2017 Status: F Source: [place] 2:08 PM [facility] [place] [place] REPOSITORY Order Comment: Comments: [id number] TRAB TYPE CODE TESTS RESULT OUT OF REFERENCE UNITS RANGE LAB L506.0400 0.76-1.46 ng/dL High T4 FREE 3.07 DIRECT Performed By: #### L501.19701, L501.9520, L506.0400 #### [facility] [address] [place], [address] THYROID ANTIBODIES Collected: 11/08/2017 Status: F Source: [place] 2:08 PM [facility] [place] [place] REPOSITORY TYPE CODE TESTS RESULT OUT OF RANGE REFERENCE UNITS LAB L3300.6900 0-34 IU/mL Normal TPO AB 14 6676 LAB L3300.7027 0.0-0.9 IU/mL Normal TG AB < 1.0 Result Comment: Thyroglobulin Antibody measured by [employer] Methodology Performed at: - [facility] [id number] Bottle Assembler: Rudy Odonnell PhD, Phone: [phone] Performed By: #### L3300.6750 #### [facility] (refer to report for specific site) refer to report for address and phone number ALLERGIES ALLERGIES DATE TYPE / CODE NAME / CODE REACTION SEVERITY SOURCE 09/21/2018 Drug No Known Unknown [facility] Allergy/4160 Allergies/F00 Hospital 71407(SNOMED 9086225(RXNOR Repository CT) M) ENCOUNTERS ENCOUNTERS ADMIT/DISCHARGE ACCOUNT NUMBER ADMITTING ENCOUNTER LOCATION SOURCE CLASS 09/28/2018 [id number] General acute hospital ding:LAB Repository 09/22/2018 [id number] General acute hospital ding:[facility] Repository 09/21/2018/09/21/20 [id number] Ambulatory BMSBuilding: [place] [facility]MS[facility] Repository 09/19/2018/09/19/20 [id number] Ambulatory BBuilding:[facility] [address] Repository 09/15/2018/09/15/20 [id number] Ambulatory BMSBuilding: [place] 18 BMS.[facility] Repository 08/31/2018/08/31/20 [id number] Ambulatory BBuilding: [address] Repository 08/22/2018 [id number] Ambulatory [facility] ding:US Repository 08/17/2018/08/17/20 [id number] Ambulatory BMSBuilding: [place] 18 BMS.[facility] Repository 08/05/2018 [id number] Ambulatory [facility] ding:LAB Repository 04/29/2018 [id number] Ambulatory [facility] ding:LAB Repository 03/30/2018 [id number] Ambulatory [facility] ding:LAB Repository 03/30/2018/06/20 [id number] Ambulatory BMSBuilding: [place] 18 BMS.[facility] Repository 02/01/2018 [id number] [facility] [place] [facility] Repository 11/08/2017 [id number] Ambulatory [place] [facility] ding:LAB Repository PAYERS PAYERS ENCOUNTER GUARANTOR PAYER SUBSCRIBER SOURCE 09/28/2018 LISSET Nickerson Primary LISSET [place] S Insurance:MEDICARE SUMMERSDOB: Community [place] [id number] , [place] [address]Vdg: [id number] Date:2018-09-28 () 09/28/2018 Secondary LISSET M [place] Insurance:AULTCAREPol SUMMERSDOB: [facility] icy Number: [id number] [id number] Repository Date:2024-69-69MJ [facility] [address] [place] [phone]: 09/28/2018 Tertiary NOT GIVENUNK [place] Insurance:SELF PAY [facility] Number: Effective Repository Date:2018-09-28 09/22/2018 LISSET M Primary LISSET [place] S Insurance:MEDICARE SUMMERSDOB: Community [place] PART A [facility] [id number] County Memorial Hospital Number: Repository , [place] [address]Auf: [id number] Date:2018-09-22 () 09/22/2018 Secondary LISSET Krishan [place] Insurance:AULTCAREPol SUMMERSDOB: [facility] icy Number: [id number] Hospital [id number] Repository Date:1110-24-05[address], [place] [address]DQ: 09/22/2018 Tertiary NOT GIVENUNK [place] Insurance:SELF PAY [facility] Number: Effective Repository Date:2018-09-22 09/21/2018 LISSET M Primary LISSETJUAN [place] [id number] S Insurance:MEDICARE SUMMERSDOB: Community [place] PART [place] [facility] [id number] County Memorial Hospital Number: Repository , [place] [address]Nxy: [id number] Date:2018-09-15 () 09/21/2018 Secondary LISSET M [place] Insurance:AULTCAREPol SUMMERSDOB: [facility] icy Number: [id number] Hospital [id number] Repository Date:3803-29-22YX [address] [place] [address]ZR: 09/21/2018 Tertiary NOT GIVENUNK [place] Insurance:SELF PAY [facility] Number: Effective Repository Date:2018-09-21 09/19/2018 LISSET M Primary [facility] SUMMERSDOB: Insurance:MEDICARE SUMMERSDOB: [facility] [id number] S [facility] [id number] Repository [place] Number: [address] [place] [facility] [id number] [place], [place] [address]Uxg: Date:2018-09-12 [place], [place] [address]Pyq: [id number] () Name:[facility] ()Tel: [phone] Bhfraqbajljmvd NCUXK [phone] () [address] [address], [place] [address]NI: 09/19/2018 Secondary [facility] Insurance:AULTCARE SUMMERSDOB: [address] Number: [id number] Repository [id number] [address] [place] Date:2018-09-12 - [facility] [id number] , [place] [address]Fdt: Name:[facility] [address] [place] [address] ()Tel: [phone]: [phone] 09/15/2018 NATTY Pringle Primary LISSET M [place] [id number] S Insurance:MEDICARE SUMMERSDOB: [facility] [place] A [facility] [id number] Española HospitalOHIOHEALTH PICKERINGTON METHODIST HOSPITALJEFFERYHONORHE[facility] Number: Repository , [place] [address]Yir: [id number] Date:2018-09-07 () 09/15/2018 Secondary L[place] M [place] Insurance:AULTCAREPol SUMMERSDOB: [facility] icy Number: [id number] Hospital [id number] Repository Date:9336-05-60PY [address] [place] [address]KN: 09/15/2018 Tertiary NOT GIVENUNK [place] Insurance:SELF PAY [facility] Number: Effective Repository Date:2018-09-13 08/31/2018 LISSET M Primary [facility] SUMMERSDOB: Insurance:MEDICARE SUMMERSDOB: [facility] [id number] S PART B INSCOPolicy [id number] Repository [place] Number: [address] [place] [facility] [id number] [place], [place] [address]Eiz: Date:2018-08-25 [place], [place] [address]Fsi: 0926-30-48Mome ()Tel: [phone]) Name:[facility] () () [employer] [phone] () [address] [place] [address]VW: 08/31/2018 Secondary [facility] Insurance:AULTCARE SUMMERSDOB: [place] [address]APolicy Number: [id number] Repository [id number] [address] [place] Date:2018-08-25 - [facility] [id number] , [place] [address]Mcp: Name:[facility] [address] [place] [address] ()Tel: [phone]: [phone] 08/22/2018 NATTY Pringle Primary L[place] M [place] [id number] S Insurance:MEDICARE SUMMERSDOB: [facility] [place] PART A BPolicy [id number] County Memorial Hospital Number: Repository , [place] [address]Jmg: [id number] Date:2018-08-17 () 08/22/2018 Secondary L[place] M [place] Insurance:AULTCAREPol SUMMERSDOB: Community icy Number: [id number] Hospital [id number] Repository Date:0566-67-16RA [address], [place] [address]OB: 08/22/2018 Tertiary NOT GIVENUNK [place] Insurance:SELF PAY [facility] Number: Effective Repository Date:2018-08-17 08/17/2018 Natty Pringle Primary LISSET M [place] [id number] S Insurance:MEDICARE SUMMERSDOB: Community [place] PART A [facility] [id number] Surgical Hospital Number: Repository , [place] [address]Mjh: [id number] Date:2018-08-04 () 08/17/2018 Secondary [place] M [place] Insurance:AULTCAREPol SUMMERSDOB: Community icy Number: [id number] Hospital [id number] Repository Date:8473-82-83KN [address], [place] [address]TH: 08/17/2018 Tertiary NOT GIVENUNK [place] Insurance:SELF PAY [facility] Number: Effective Repository Date:2018-08-17 08/05/2018 Natty Pringle Primary L[place] M [place] [id number] S Insurance:MEDICARE SUMMERSDOB: Community [place] PART A [facility] [id number] Surgical Hospital Number: Repository , [place] [address]Zcz: [id number] Date:2018-08-05 () 08/05/2018 Secondary [place] M [place] Insurance:AULTCAREPol SUMMERSDOB: Community icy Number: [id number] Hospital [id number] Repository Date:1509-66-30RD [address] [address]MN: 08/05/2018 Tertiary NOT GIVENUNK [place] Insurance:SELF PAY [facility] Number: Effective Repository Date:2018-08-05 04/29/2018 Natty Pringle Primary LISSET M [place] [id number] S Insurance:MEDICARE SUMMERSDOB: Community [place] PART A [facility] [id number] Surgical Hospital Number: Repository , [place] [address]Fgj: [id number] Date:2018-04-29 () 04/29/2018 Secondary L[place]SET M [place] Insurance:AULTCAREPol SUMMERSDOB: Community icy Number: [id number] Hospital [id number] Repository Date:4087-41-46TM [address], [place] [address]XB: 04/29/2018 Tertiary NOT GIVENUNK [place] Insurance:SELF PAY [facility] Number: Effective Repository Date:2018-04-29 03/30/2018 Natty L Primary LIS[place] M [place] [id number] S Insurance:MEDICARE SUMMERSDOB: Community [place] PART A [facility] [id number] Surgical Hospital Number: Repository , [place] [address]Auf: [id number] Date:2018-03-30 () 03/30/2018 Secondary [place] M [place] Insurance:AULTCAREPol SUMMERSDOB: Community icy Number: [id number] Hospital [id number] Repository Date:9151-32-59GC [address], [place] [address]KX: 03/30/2018 Tertiary NOT GIVENUNK [place] Insurance:SELF PAY [facility] Number: Effective Repository Date:2018-03-30 03/30/2018 Natty L Primary L[place] M [place] [id number] S Insurance:MEDICARE SUMMERSDOB: Community [place] PART A [facility] [id number] Surgical Hospital Number: Repository , [place] [address]Kho: [id number] Date:2018-02-17 () 03/30/2018 Secondary L[place] M [place] Insurance:AULTCAREPol SUMMERSDOB: Community icy Number: [id number] Hospital [id number] Repository Date:6648-50-33YK [address], [place] [address]ZY: 03/30/2018 Tertiary NOT GIVENUNK [place] Insurance:SELF PAY [facility] Number: Effective Repository Date:2018-03-30 02/01/2018 Natty Pringle Primary LISSET M [place] [id number] S Insurance:MEDICARE SUMMERSDOB: Community [place] PART A [facility] [id number] Surgical Hospital Number: Repository , [place] [address]Smw: [id number] Date:2018-02-01 () 02/01/2018 Secondary LISSET M [place] Insurance:AULTCAREPol SUMMERSDOB: Community icy Number: [id number] Hospital [id number] Repository Date:2090-47-75YA [address], [place] [address]CI: 02/01/2018 Tertiary NOT GIVENUNK [place] Insurance:SELF PAY [facility] Number: Effective Repository Date:2018-02-01 11/08/2017 Natty Pringle Primary LISSET M [place] [id number] S Insurance:MEDICARE SUMMERSDOB: Community [place] PART A [facility] [id number] Surgical Hospital Number: Repository , [place] [address]Scq: [id number] Date:2017-11-08 () 11/08/2017 Secondary LISSET M [place] Insurance:AULTCAREPol SUMMERSDOB: Community icy Number: [id number] Hospital [id number] Repository Date:4934-68-07EF [address] [address]YA: 11/08/2017 Tertiary NOT GIVENUNK [place] Insurance:SELF PAY [facility] Number: Effective Repository Date:2017-11-08
== END ==
PROVIDERS: Family Provider Nurse Practitioner Family; PCP Nurse Practitioner Family; Referring Provider Nurse Practitioner; Visit Provider Nurse Practitioner
DX: E05.90 Thyrotoxicosis, unspecified without thyrotoxic crisis or storm (principal); E07.9 Disorder of thyroid, unspecified
CPT/HCPCS: 36415; 84439; 84443; 84450; 84460; 84481

== ENCOUNTER → 2018-11-07 12:52 | Outpatient (CLI) | payer MEDICARE, OTHER, SELFPAY ==
[2018-09-15 10:31] VITALS: BMI 35.2
[2018-11-07 14:20] LABS: AST(SGOT) 24 U/L (15-37); Alanine Aminotransfer ALT/SGPT 29 U/L (13-56); Free T3 2.5 pg/mL (2.18-3.98); T4 Free Direct 0.86 ng/dL (0.76-1.46); Thyroid Stim Hormone (TSH) 3.66 uIU/mL (0.358-3.74)
== END ==
PROVIDERS: Family Provider Nurse Practitioner Family; PCP Nurse Practitioner Family; Referring Provider Nurse Practitioner; Visit Provider Nurse Practitioner
DX: E05.90 Thyrotoxicosis, unspecified without thyrotoxic crisis or storm (principal); E07.9 Disorder of thyroid, unspecified
CPT/HCPCS: 36415; 84439; 84443; 84450; 84460; 84481

== ENCOUNTER → 2021-02-17 13:37 | Outpatient (CLI) | payer MEDICARE, SELFPAY ==
[2018-11-16 10:12] VITALS: BMI 35.2
--- NOTE | 2021-02-17 13:43 | CT_ITS ---
STUDY: LOW DOSE CT LUNG CANCER SCREENING REASON FOR EXAM: Female, 75 years old. TOBACCO ABUSE. Patient smoked 2 packs per day for 30 years. RADIATION DOSAGE (If Supplied By Facility): CTDIvol = ( 4.02 ) mGy, DLP = ( 126.37 ) mGycm TECHNIQUE: No contrast was administered. Low dose technique was utilized (average mAS-38 and kVp 120). 1.25 mm axial source images with a slice interval of 1.25-mm were reconstructed in lung windows. 2.5 mm axial source images with a slice interval of 2.5-mm were reconstructed in lung windows. 5.0 mm axial source images with a slice interval of 5.0-mm were reconstructed in soft tissue windows. Nodule measured using lung windows on PACS and/or independent workstation with automated measurement of minimum and maximum diameter. Nodule measurement reported as average diameter rounded to the nearest whole number. Growth is defined as an increase ins size of greater than 1.5 mm. COMPARISON: Comparison is made with prior examination of 02/21/2012. NODULES: No suspicious nodules are seen. Emphysema: Mild degree of hyperinflation. Mild degree of emphysematous changes. Endobronchial lesion: None Aorta: Mild calcific plaque at the level of the aortic arch. Coronary arteries: Coronary artery calcification. Mediastinal nodes: Small benign appearing mediastinal lymph nodes. Other chest and abdominal findings: Degenerative changes of the thoracic spine. CT/Low Dose CT Lung Screening IMPRESSION: Lung-RADS category 2 - Continue annual screening with LDCT in 12 months. IMPORTANT NOTES FOR USE: ACR Lung-RADS Version 1.1 Assessment Categories Release Date: 2018 Category: Coded 0-4 bases on nodule(s) with highest degree of suspicion. Negative screen is defined as categories 1 and 2; a positive screen is defined as categories 3 and 4. Category 3 and 4A nodules that are unchanged on interval CT should be coded as category 2, and individuals returned to screening in 12 months. Category 4X: Category 3 or 4 nodules with additional imaging findings that increase the suspicion of lung cancer, such as spiculation, GGN that doubles in size in 1 year, enlarged lymph notes, etc. Category Modifiers: S (significant finding unrelated to lung cancer) Electronically Signed: Gene Hernandez MD at 15:43 EDT , Service support ,
== END ==
PROVIDERS: PCP Nurse Practitioner Family; Referring Provider Internal Medicine Pulmonary Disease; Visit Provider Internal Medicine Pulmonary Disease
DX: Z87.891 Personal history of nicotine dependence (principal)
CPT/HCPCS: 71271